=== PATIENT | male | born 1970 | race Caucasian/White ===

== ENCOUNTER 2018-12-29 23:18 | Inpatient (IN) | payer BC ==
[~2018-12-29] VITALS: Ht 175.3 cm; Wt 88.2 kg
[2018-12-30] VITALS (9 sets, daily range): BP systolic 136–156; BP diastolic 87–94; PULSE 71–90; RESP 18–22; Ht 175.3 cm; Wt 88.2 kg
[2018-12-30] MEDS ORDERED: CARV6.25 PO (05:46)
[2018-12-30] MEDS ORDERED: THIA50TA7 PO (05:46)
[2018-12-30] MEDS ORDERED: FOLI-49 PO (05:46)
[2018-12-30] MEDS ORDERED: ATOR-2 PO (05:46)
[2018-12-30] MEDS ORDERED: ARIP15TA3 PO (05:46)
[2018-12-30] MEDS ORDERED: LISI10TA2 PO (05:46)
[2018-12-30] MEDS ORDERED: ASPI-817 PO (05:46)
[2018-12-30] MEDS ORDERED: FERR325T5 PO (05:46)
[2018-12-30] MEDS ORDERED: SERT-165 PO (05:46)
[2018-12-30] MEDS ORDERED: ACETAMINOPHEN 325 MG TAB PO PRN (06:00)
[2018-12-30] MEDS ORDERED: ONDANSETRON 4 MG INJ IV PRN (06:00)
[2018-12-30] MEDS ORDERED: NACL 0.9% 3 ML SYG IV SCH (06:00)
[2018-12-30] MEDS ORDERED: ALBUTEROL/IPRATROPIUM (NEB) 3 ML AMP HHN PRN (06:00)
[2018-12-30] MEDS ORDERED: VANCOMYCIN IV PER PHARMACY XX SCH (06:00)
[2018-12-30] MEDS ORDERED: LORAZEPAM 2 MG INJ IV ONE (06:00)
--- NOTE | 2018-12-30 06:26 | HP ---
Date/Time of Note Date/Time of Note DATE: 12/30/18 TIME: 06:22 Assessment/Plan VTE Prophylaxis Pharmacological prophylaxis: heparin Lines/Catheters IV Catheter Type (from [facility]): Saline Lock Urinary Cath still in place: No Assessment/Plan Assessment/Plan 1. Bacteremia -Blood culture at [facility] shows GPC -He will be on IV antibiotics -will rule out endocarditis -ID and cardiology consult -Repeat blood culture here 2. Alcohol intoxication -Thiamine, folate, MVI, Librium. As needed Ativan 3. History of CAD with CABG in 2016 4. Substance abuse: Patient uses cocaine on a weekly or biweekly basis 5. Hypertension: Adjust BP meds as needed HPI/ROS Admit Date/Time Admit Date/Time Dec 30, 2018 at 04:32 Hx of Present Illness This is a 48-year-old male with a history of hypertension, depression,, cocaine use, CAD with CABG 2016, possible bowel surgery about a month ago. Patient was transferred from [facility] before her insurance reason after he was found to be bacteremic and intoxicated with alcohol. He also has been complaining of chest pain. He was seen at [facility] recently, at that time blood drawn now shows gram- positive cocci. Patient also has been drinking alcohol on a daily basis and is intoxicated with agitation and some sign of withdrawal. Patient was transferred to [facility] for insurance reason. PMH/Family/Social Past Medical History Medications Current Medications IV Flush (NS 3 ml) 3 ml PER PROTOCOL IV ; Start 12/30/18 at 06:00 Lorazepam (Ativan) 1 mg Q2H PRN IV .ANXIETY; Start 12/30/18 at 06:00 Ondansetron HCl (Zofran Inj) 4 mg Q6H PRN IV NAUSEA/VOMITING; Start 12/30/18 at 06:00 Acetaminophen (Tylenol Tab) 650 mg Q6H PRN PO .PAIN 1-3 OR TEMP; Start 12/30/18 at 06:00 Heparin Sodium (Porcine) (Heparin (5000 Units/1ml)) 5,000 unit Q12 SC ; Start 12/30/18 at 09:00 Albuterol/ Ipratropium (Duoneb) 3 ml Q2H RESP THERAPY PRN HHN SHORTNESS OF BREATH; Start 12/30/18 at 06:00 Aripiprazole (Abilify) 15 mg DAILY PO ; Start 12/30/18 at 09:00; Status UNV Atorvastatin Calcium (Lipitor) 80 mg QHS PO ; Start 12/30/18 at 21:00 Carvedilol (Coreg) 6.25 mg BID PO ; Start 12/30/18 at 09:00 Folic Acid (Folic Acid) 1 mg DAILY PO ; Start 12/30/18 at 09:00 Lisinopril (Zestril) 10 mg DAILY PO ; Start 12/30/18 at 09:00 Sertraline HCl (Zoloft) 150 mg DAILY PO ; Start 12/30/18 at 09:00; Status UNV Thiamine HCl (Vitamin B1) 100 mg DAILY PO ; Start 12/30/18 at 09:00 Miscellaneous Information 325 mg TID PO ; Start 12/30/18 at 09:00; Status UNV Multivitamins Therapeutic (Theragran) 1 tab DAILY PO ; Start 12/30/18 at 09:00 Lorazepam (Ativan) 2 mg Q2H PRN IV EtOH withdrawal; Start 12/30/18 at 06:00 Vancomycin HCl (Vanco Iv Per Pharmacy) VANCOMYCIN PER PHARMACY PER PROTOCOL XX ; Start 12/30/18 at 06:00; Status UNV Cefepime HCl 50 ml @ 100 mls/hr Q12 IVPB ; Start 12/30/18 at 09:00; Status UNV Coded Allergies: No Known Allergy (Unverified , 12/30/18) Social History Smoking Status: Former smoker Exam/Review of Systems Vital Signs Vitals Vital Signs Date Temp Pulse Resp B/P (MAP) Pulse Ox O2 O2 Flow FiO2 Time Delivery Rate 12/30/18 79 04:58 12/30/18 97.5 18 156/93 97 Room Air 04:30 (114) Intake and Output 12/29/18 12/29/18 12/30/18 1515:00 23:00 07:00 IntakeIntake Total 0 ml BalanceBalance 0 ml Exam Exam Past Surgical History Past Surgical Hx: other (see hpi) Family History Significant Family History: no pertinent family hx Social History Alcohol Use: other Smoking Status: Unknown if ever smoked Drug Use: none, other Exam Constitutional: other (no acute distress) Head: normocephalic, atraumatic Eyes: PERRL Respiratory: clear to auscultation Cardiovascular: regular rate and rhythm Gastrointestinal: soft GISELLE RIVERA MD Dec 30, 2018 06:26
[2018-12-30] MEDS: FOLIC ACID 1 MG TAB PO SCH (08:41)
[2018-12-30] MEDS: ARIPIPRAZOLE 5 MG TAB PO SCH (08:41)
[2018-12-30] MEDS: FERROUS GLUCONATE (EC) 325 MG TAB PO SCH ×3 (08:41→20:31)
[2018-12-30] MEDS: CEFEPIME 1GM/50 ML (PMX) 50 ML IVPB SCH ×2 (08:41→20:30)
[2018-12-30] MEDS: LISINOPRIL 10 MG TAB PO SCH (08:42)
[2018-12-30] MEDS: THIAMINE 100 MG TAB PO SCH (08:43)
[2018-12-30] MEDS: MULTIVITAMINS THERAPEUTIC TAB PO SCH (08:43)
[2018-12-30] MEDS: SERTRALINE 50 MG TAB PO SCH (08:43)
[2018-12-30] MEDS: CHLORDIAZEPOXIDE 25 MG CAP PO SCH ×3 (08:46→20:31)
[2018-12-30] MEDS: HEPARIN 5,000 UNIT/1 ML VIAL SC SCH ×2 (09:11→21:36)
--- NOTE | 2018-12-30 10:57 | PN ---
Date/Time of Note Date/Time of Note DATE: 12/30/18 TIME: 10:56 Assessment/Plan VTE Prophylaxis Risk score (from Ns)>0 risk: 2 SCD applied (from [facility] [place]): No SCD contraindicated: other Pharmacological prophylaxis: heparin Lines/Catheters IV Catheter Type (from [facility]): Peripheral IV Urinary Cath still in place: No Assessment/Plan Hospital Course S: No acute events overnight. O: VS - see below PE: General: lying in bed, no acute distress HEENT: NC/AT. pupils are equal. round. NECK: Supple CV: RRR. systolic murmur; no gallop or rubs. PULM: no wheezing or rhonchi. GI: SOFT, NT, ND, no rebound or guarding Extremity: trace B/L LE edema. no clubbing. neuro: No focal deficits Assessment/Plan: 48-year-old male with a history of hypertension, depression, cocaine use, CAD with CABG 2016, possible bowel surgery about a month ago, transferred from [facility] with bacteremia and intoxicated with alcohol. 1. Bacteremia -Blood culture at [facility] shows GPC. Presently no fevers. -For now continue IV antibiotics -will rule out endocarditis -echocardiogram ordered and will obtain cardiology consult -ID will also be consulted -Follow-up results of repeat blood culture here 2. Alcohol intoxication -Monitor for signs of withdrawal, for now continue thiamine, folate, MVI, Librium. - As needed Ativan -Counseled on alcohol cessation 3. History of CAD with CABG in 2016 -Continue current medications, follow cardiac 4. Substance abuse: Patient uses cocaine on a weekly or biweekly basis -Monitor withdrawal, counseled on cessation 5. Hypertension: Blood pressure presently stable -Monitor, adjust BP meds as needed Result Diagram: 12/30/18 0624 12/30/18 0624 Results 24hrs Laboratory Tests Test 12/30/18 06:24 White Blood Count 3.7 L Red Blood Count 4.19 L Hemoglobin 12.7 L Hematocrit 37.9 L Mean Corpuscular Volume 90.5 Mean Corpuscular Hemoglobin 30.3 Mean Corpuscular Hemoglobin Concent 33.5 Red Cell Distribution Width 16.9 H Platelet Count 221 Mean Platelet Volume 10.9 H Immature Granulocytes % 0.300 Neutrophils % 61.4 Lymphocytes % 27.8 Monocytes % 7.8 Eosinophils % 1.6 Basophils % 1.1 Nucleated Red Blood Cells % 0.0 Immature Granulocytes # 0.010 Neutrophils # 2.3 Lymphocytes # 1.0 Monocytes # 0.3 Eosinophils # 0.1 Basophils # 0.0 Nucleated Red Blood Cells # 0.0 Sodium Level 142 Potassium Level 3.9 Chloride Level 108 Carbon Dioxide Level 26 Anion Gap 8 Blood Urea Nitrogen 19 Creatinine 0.60 L Est Glomerular Filtrat Rate mL/min > 60 Glucose Level 101 Hemoglobin A1c 5.7 Calcium Level 9.0 Total Bilirubin 0.9 Direct Bilirubin 0.00 Indirect Bilirubin 0.9 Aspartate Amino Transf (AST/SGOT) 55 H Alanine Aminotransferase (ALT/SGPT) 60 Alkaline Phosphatase 70 Creatine Kinase 254 H Creatine Kinase Index 1.4 Creatinine Kinase MB (Mass) 3.64 H Troponin I < 0.012 Total Protein 7.1 Albumin 3.9 Globulin 3.20 Albumin/Globulin Ratio 1.21 Triglycerides Level 87 Cholesterol Level 179 LDL Cholesterol, Calculated 115 HDL Cholesterol 47 Cholesterol/HDL Ratio 3.8 Thyroid Stimulating Hormone (TSH) 7.750 H Exam/Review of Systems Exam Vitals Vital Signs Date Temp Pulse Resp B/P (MAP) Pulse Ox O2 O2 Flow FiO2 Time Delivery Rate 12/30/18 90 08:36 12/30/18 98.4 22 148/90 96 Room Air 07:45 (109) Intake and Output 12/29/18 12/29/18 12/30/18 1515:00 23:00 07:00 IntakeIntake Total 0 ml BalanceBalance 0 ml Results Results 24hrs Laboratory Tests Test 12/30/18 06:24 White Blood Count 3.7 L Red Blood Count 4.19 L Hemoglobin 12.7 L Hematocrit 37.9 L Mean Corpuscular Volume 90.5 Mean Corpuscular Hemoglobin 30.3 Mean Corpuscular Hemoglobin Concent 33.5 Red Cell Distribution Width 16.9 H Platelet Count 221 Mean Platelet Volume 10.9 H Immature Granulocytes % 0.300 Neutrophils % 61.4 Lymphocytes % 27.8 Monocytes % 7.8 Eosinophils % 1.6 Basophils % 1.1 Nucleated Red Blood Cells % 0.0 Immature Granulocytes # 0.010 Neutrophils # 2.3 Lymphocytes # 1.0 Monocytes # 0.3 Eosinophils # 0.1 Basophils # 0.0 Nucleated Red Blood Cells # 0.0 Sodium Level 142 Potassium Level 3.9 Chloride Level 108 Carbon Dioxide Level 26 Anion Gap 8 Blood Urea Nitrogen 19 Creatinine 0.60 L Est Glomerular Filtrat Rate mL/min > 60 Glucose Level 101 Hemoglobin A1c 5.7 Calcium Level 9.0 Total Bilirubin 0.9 Direct Bilirubin 0.00 Indirect Bilirubin 0.9 Aspartate Amino Transf (AST/SGOT) 55 H Alanine Aminotransferase (ALT/SGPT) 60 Alkaline Phosphatase 70 Creatine Kinase 254 H Creatine Kinase Index 1.4 Creatinine Kinase MB (Mass) 3.64 H Troponin I < 0.012 Total Protein 7.1 Albumin 3.9 Globulin 3.20 Albumin/Globulin Ratio 1.21 Triglycerides Level 87 Cholesterol Level 179 LDL Cholesterol, Calculated 115 HDL Cholesterol 47 Cholesterol/HDL Ratio 3.8 Thyroid Stimulating Hormone (TSH) 7.750 H Medications Medication Current Medications IV Flush (NS 3 ml) 3 ml PER PROTOCOL IV ; Start 12/30/18 at 06:00 Lorazepam (Ativan) 1 mg Q2H PRN IV .ANXIETY; Start 12/30/18 at 06:00 Ondansetron HCl (Zofran Inj) 4 mg Q6H PRN IV NAUSEA/VOMITING; Start 12/30/18 at 06:00 Acetaminophen (Tylenol Tab) 650 mg Q6H PRN PO .PAIN 1-3 OR TEMP; Start 12/30/18 at 06:00 Heparin Sodium (Porcine) (Heparin (5000 Units/1ml)) 5,000 unit Q12 SC Last administered on 12/30/18at 09:11; Admin Dose 5,000 UNIT; Start 12/30/18 at 09:00 Albuterol/ Ipratropium (Duoneb) 3 ml Q2H RESP THERAPY PRN HHN SHORTNESS OF BREATH; Start 12/30/18 at 06:00 Aripiprazole (Abilify) 15 mg DAILY PO Last administered on 12/30/18at 08:41; Admin Dose 15 MG; Start 12/30/18 at 09:00 Atorvastatin Calcium (Lipitor) 80 mg QHS PO ; Start 12/30/18 at 21:00 Carvedilol (Coreg) 6.25 mg BID PO Last administered on 12/30/18at 08:42; Admin Dose 6.25 MG; Start 12/30/18 at 09:00 Folic Acid (Folic Acid) 1 mg DAILY PO Last administered on 12/30/18at 08:41; Admin Dose 1 MG; Start 12/30/18 at 09:00 Lisinopril (Zestril) 10 mg DAILY PO Last administered on 12/30/18 08:42; Admin Dose 10 MG; Start 12/30/18 at 09:00 Sertraline HCl (Zoloft) 150 mg DAILY PO Last administered on 12/30/18 08:43; Admin Dose 150 MG; Start 12/30/18 at 09:00 Thiamine HCl (Vitamin B1) 100 mg DAILY PO Last administered on 12/30/18 08:43; Admin Dose 100 MG; Start 12/30/18 at 09:00 Ferrous Gluconate (Fergon) 325 mg TID PO Last administered on 12/30/18 08:41; Admin Dose 325 MG; Start 12/30/18 at 09:00 Multivitamins Therapeutic (Theragran) 1 tab DAILY PO Last administered on 12/30/18 08:43; Admin Dose 1 TAB; Start 12/30/18 at 09:00 Lorazepam (Ativan) 2 mg Q2H PRN IV EtOH withdrawal; Start 12/30/18 at 06:00 Vancomycin HCl (Vanco Iv Per Pharmacy) VANCOMYCIN PER PHARMACY PER PROTOCOL XX ; Start 12/30/18 at 06:00 Cefepime HCl 50 ml @ 100 mls/hr Q12 IVPB Last administered on 12/30/18 08:41; Admin Dose 100 MLS/HR; Start 12/30/18 at 07:00 Chlordiazepoxide (Librium) 50 mg TID PO Last administered on 12/30/18 08:46; Admin Dose 50 MG; Start 12/30/18 at 09:00 HENNY SOTELO Dec 30, 2018 10:57
--- NOTE | 2018-12-30 14:14 | RADRPT ---
Echocardiogram Report Patient Name: SHARAN REYESPatient ID: [id number] : 1970 (48y 2m)Study Date: 12/30/2018 9:16:20 AM Gender: Coriecession #: [id number] Tech: [facility] Location: [address] Ref.Physician: HENNY SOTELO Height(Cm): BSA: Weight(Kg): Quality: Technically Difficult StudyAccount #: Procedures: Echocardiographic Report: Transthoracic echocardiogram with complete 2D, M-Mode, and doppler examination. Indications: R/o endocarditis, hx of AVR. Measurements: 2D/M Mode Doppler Measurement Value Normal Range Measurement Value Normal Range LVIDd 2D 5.0 [ 4.2 - 5.8 ] cm AV Mean Terence 1.1 [ 70.0 - 90.0 ] cm/sec LVIDs 2D 3.7 [ 2.5 - 4.0 ] cm AV Mean PG 7.0 [ 2.0 - 4.0 ] mmHg LVPWd 2D 1.4 [ 0.6 - 1.0 ] cm AV VTI 34.0 cm IVSd 2D 1.4 [ 0.6 - 1.0 ] cm LVOT Peak Terence 0.7 [ 70.0 - 110.0 ] cm/sec AoR Diam 2D 3.0 [ 2.6 - 3.4 ] cm LVOT Peak PG 2.0 [ 2.0 - 6.0 ] mmHg EDV 2D 117.0 [ 62.0 - 150.0 ] ml MV E Peak Terence 0.7 [ 60.0 - 130.0 ] cm/sec ESV 2D 59.6 [ 21.0 - 61.0 ] ml MV A Peak Terence 0.8 [ 100.0 - 120.0 ] cm/sec EF 2D 49.1 [ 52.0 - 72.0 ] percent MV E/A 0.9 [ 0.8 - 1.5 ] ratio LA Dimen 2D 3.8 [ 3.0 - 4.0 ] cm MV Decel Time 137 [ 104 - 258 ] msec Lat E` Terence 0.1 [ 10.0 - 15.0 ] cm/sec Lateral E/E` 9.0 [ 1.0 - 2.0 ] ratio Med E` Terence 0.1 cm/sec MV E/A 0.9 [ 0.8 - 1.5 ] ratio TR Peak Terence 2.7 [ 100.0 - 280.0 ] cm/sec TR Peak PG 30.0 mmHg RVSP 38.0 [ 10.0 - 36.0 ] mmHg Findings: Left Ventricle: Normal left ventricular cavity size. Moderate concentric left ventricular hypertrophy. Mild left ventricular systolic dysfunction. Paradoxical septal motion consistent with post pericardectomy status. Ejection fraction is visually estimated at 55 %. Tissue Doppler/Mitral Doppler indices are consistent with impaired relaxation (Stage I diastolic dysfunction). Right Ventricle: Normal right ventricular size. Normal right ventricular systolic function. Left Atrium: The left atrium is normal in size. Right Atrium: The right atrium is normal in size. Mitral Valve: Mild mitral leaflet calcification. Mild mitral annular calcification. Trace mitral regurgitation. Aortic Valve: Aortic Valve Bio Prosthesis. Aortic valve Max velocity 1.99 m/sec. Max PG 16.00 mmHg. Mean PG 7.00 mmHg. Tricuspid Valve: Normal appearance of the tricuspid valve. Estimated peak PA systolic pressure 38 mmHg. There is mild tricuspid regurgitation. Pulmonic Valve: Pulmonic valve not well visualized. Pericardium: Normal pericardium with no significant pericardial effusion. Aorta: Normal aortic root. IVC: Normal size with poor respiratory collapse consistent with elevated right atrial pressure. Conclusions: Fair quality study. Moderate concentric left ventricular hypertrophy with normal systolic function, septal dyskinesis. Grade 1 diastolic dysfunction. Trace mitral regurgitation. Mild tricuspid regurgitation with mild pulmonary hypertension. Bioprosthetic aortic valve without elevated gradients. Structure is not well seen. IVC not collapsing suggests elevated right atrial pressure. If concern persists for endocarditis consider ROBERTO. Electronically Signed By: Jo Martinez 2018-12-30 14:12:55 [facility]
[2018-12-30] MEDS: VANCOMYCIN HCL 1.25 GM in SOD CHLORIDE 0.9% 250 ML IVPB SCH (14:28)
[2018-12-30] MEDS: LORAZEPAM 2 MG INJ IV PRN (14:32)
--- NOTE | 2018-12-30 18:40 | CONS ---
Assessment/Plan Assessment/Plan Hospital Course (Demo Recall) 48 yo with h/o bioprosthetic aortic valve, with known bacteremia, left hospital ama, picked up intoxicated and brought to [facility], transferred here for insurance reasons. Gram positive cocci in clusters suspicious as a cause of endocarditis. Transthoracic echo does not clearly show a vegetation, but was not a good quality study due to patient body habitus. Impression: Bacteremia, r/o endocarditis H/o aortic valve and root replacement Alcohol abuse, now in withdrawal Cocaine abuse Recommendations: Will try to get outside records from [facility] and from [facility]. Given brevity of patient's admissions, unlikely that a ROBERTO was done. Will plan to do a ROBERTO on morning. Discussed the procedure with the patient, rationale for doing it for diagnosing possible valve infection, and possible consequences of untreated endocarditis. He agrees to proceed. Antibiotics, ID consult, would be helpful to have outside hospital culture results Watch for DT's Social work for aid in maintaining sobriety Anticipate patient will need long-term antibiotics and may need to be in a SNF/[facility] facility for continued treatment Consultation Date/Type/Reason Admit Date/Time Dec 30, 2018 at 04:32 Date of Consultation: Dec 30, 2018 Type of Consult Cardiology Reason for Consultation possible endocarditis Requesting Provider: HENNY SOTELO Date/Time of Note DATE: 12/30/18 TIME: 18:16 Hx of Present Illness 48 yo with history of surgical bioprosthetic aortic valve replacement and Bentall procedure for bicuspid aortic valve with regurgitation and ascending thoracic aneurysm, also with h/o etoh and cocaine use, presented to [facility] by ambulance, found intoxicated. He had been recently admitted for bacteremia and left against medical advice. Cultures grew out gram positive cocci. He states he was at the [facility] to get sober, but then left to drink, a decision which he acknowledges was a poor choice. Patient speech somewhat difficult to discern, but he does state he's been in both [facility] and [facility] in the past week, does not recall what testing he has had done, is not sure if he has had a ROBERTO. He does state a desire to get sober. Last used cocaine 2 weeks ago, last drank vodka yesterday. At present he says he feels unwell, knows he's "going through withdrawals", c/o abdominal pain. No dyspnea, no chest pain. Constitutional: other (general malaise) Eyes: no complaints ENT: no complaints Respiratory: no complaints Cardiovascular: no complaints Gastrointestinal: pain Genitourinary: no complaints Musculoskeletal: no complaints Skin: no complaints Neurologic: no complaints Endocrine: no complaints Lymphatic: no complaints Psychological: no complaints Immunologic: no complaints Past Medical History Home Meds Reported Medications Thiamine* (Thiamine*) 50 Mg Tablet, 100 MG PO DAILY, TAB 12/30/18 Folic Acid* (Folic Acid*) 1 Mg Tablet, 1 MG PO DAILY, TAB 12/30/18 Aripiprazole* (Abilify*) 15 Mg Tablet, 15 MG PO DAILY, #30 TAB 12/30/18 Aspirin* (Aspirin* EC) 81 Mg Tablet.dr, 81 MG PO DAILY, TAB 12/30/18 Atorvastatin* (Atorvastatin*) 80 Mg Tablet, 80 MG PO QHS, #30 TAB 12/30/18 Lisinopril* (Lisinopril*) 10 Mg Tablet, 10 MG PO DAILY, #30 TAB 12/30/18 Ferrous Sulfate (Ferrous Sulfate) 325 Mg Tablet.dr, 325 MG PO TID 12/30/18 Sertraline Hcl* (Sertraline Hcl*) 100 Mg Tablet, 150 MG PO DAILY, #30 TAB 12/30/18 Carvedilol* (Coreg*) 6.25 Mg Tablet, 6.25 MG PO BID, #60 TAB 12/30/18 Medications Current Medications IV Flush (NS 3 ml) 3 ml PER PROTOCOL IV ; Start 12/30/18 at 06:00 Lorazepam (Ativan) 1 mg Q2H PRN IV .ANXIETY Last administered on 12/30/18at 14:32; Admin Dose 1 MG; Start 12/30/18 at 06:00 Ondansetron HCl (Zofran Inj) 4 mg Q6H PRN IV NAUSEA/VOMITING; Start 12/30/18 at 06:00 Acetaminophen (Tylenol Tab) 650 mg Q6H PRN PO .PAIN 1-3 OR TEMP; Start 12/30/18 at 06:00 Heparin Sodium (Porcine) (Heparin (5000 Units/1ml)) 5,000 unit Q12 SC Last administered on 12/30/18at 09:11; Admin Dose 5,000 UNIT; Start 12/30/18 at 09:00 Albuterol/ Ipratropium (Duoneb) 3 ml Q2H RESP THERAPY PRN HHN SHORTNESS OF BREATH; Start 12/30/18 at 06:00 Aripiprazole (Abilify) 15 mg DAILY PO Last administered on 12/30/18 08:41; A dmin Dose 15 MG; Start 12/30/18 at 09:00 Atorvastatin Calcium (Lipitor) 80 mg QHS PO ; Start 12/30/18 at 21:00 Carvedilol (Coreg) 6.25 mg BID PO Last administered on 12/30/18 08:42; Admin Dose 6.25 MG; Start 12/30/18 at 09:00 Folic Acid (Folic Acid) 1 mg DAILY PO Last administered on 12/30/18 08:41; Admin Dose 1 MG; Start 12/30/18 at 09:00 Lisinopril (Zestril) 10 mg DAILY PO Last administered on 12/30/18 08:42; Admin Dose 10 MG; Start 12/30/18 at 09:00 Sertraline HCl (Zoloft) 150 mg DAILY PO Last administered on 12/30/18 08:43; Admin Dose 150 MG; Start 12/30/18 at 09:00 Thiamine HCl (Vitamin B1) 100 mg DAILY PO Last administered on 12/30/18 08:43; Admin Dose 100 MG; Start 12/30/18 at 09:00 Ferrous Gluconate (Fergon) 325 mg TID PO Last administered on 12/30/18 13:26; Admin Dose 325 MG; Start 12/30/18 at 09:00 Multivitamins Therapeutic (Theragran) 1 tab DAILY PO Last administered on 12/30/18 08:43; Admin Dose 1 TAB; Start 12/30/18 at 09:00 Lorazepam (Ativan) 2 mg Q2H PRN IV EtOH withdrawal; Start 12/30/18 at 06:00 Vancomycin HCl (Vanco Iv Per Pharmacy) VANCOMYCIN PER PHARMACY PER PROTOCOL XX ; Start 12/30/18 at 06:00 Cefepime HCl 50 ml @ 100 mls/hr Q12 IVPB Last administered on 12/30/18 08:41; Admin Dose 100 MLS/HR; Start 12/30/18 at 07:00 Chlordiazepoxide (Librium) 50 mg TID PO Last administered on 12/30/18at 13:26; Admin Dose 50 MG; Start 12/30/18 at 09:00 Vancomycin HCl 1.25 gm/Sodium Chloride 250 ml @ 83.333 mls/ hr Q12H IVPB Last administered on 12/30/18at 14:28; Admin Dose 83.333 MLS/HR; Start 12/30/18 at 14:00 Allergies: Coded Allergies: No Known Allergy (Unverified , 12/30/18) Past Surgical History Past Surgical Hx: other (bioprosthetic aortic valve replacement for bicuspid aortic valve with regurgitation, with Bentall for aortic root aneurysm) Family History Significant Family History: no pertinent family hx Social History Alcohol Use: heavy (last drank yesterday, drank heavily) Smoking Status: Former smoker Drug Use: cocaine (last used 2 weeks ago) Exam/Review of Systems Vital Signs Vitals Vital Signs Date Temp Pulse Resp B/P (MAP) Pulse Ox O2 O2 Flow FiO2 Time Delivery Rate 12/30/18 74 16:41 12/30/18 98.0 21 136/87 96 Room Air 16:06 (103) 12/30/18 3.0 13:32 Intake and Output 12/29/18 12/29/18 12/30/18 1515:00 23:00 07:00 IntakeIntake Total 0 ml BalanceBalance 0 ml Exam Constitutional: alert, oriented, well developed Psych: nl mood/affect Head: normocephalic, atraumatic Eyes: nl conjunctiva, nl sclera ENMT: nl external ears & nose, nl lips & teeth Neck: supple; No jvd, No bruits Respiratory: clear to auscultation, normal air movement Cardiovascular: regular rate and rhythm, nl pulses, murmurs/extra sounds (3/6 systolic murmur at the left upper sternal border) Gastrointestinal: soft, nl liver, spleen, non-tender Musculoskeletal: nl extremities to inspection Extremities: normal pulses Neurological: nl mental status; No nl speech (speech difficult to understand) Skin: No rash or lesions Labs Result Diagram: 12/30/1862312/30/18 0624 Results 24hrs Laboratory Tests Test 12/30/18 06:24 12/30/18 11:10 White Blood Count 3.7 L Red Blood Count 4.19 L Hemoglobin 12.7 L Hematocrit 37.9 L Mean Corpuscular Volume 90.5 Mean Corpuscular Hemoglobin 30.3 Mean Corpuscular Hemoglobin Concent 33.5 Red Cell Distribution Width 16.9 H Platelet Count 221 Mean Platelet Volume 10.9 H Immature Granulocytes % 0.300 Neutrophils % 61.4 Lymphocytes % 27.8 Monocytes % 7.8 Eosinophils % 1.6 Basophils % 1.1 Nucleated Red Blood Cells % 0.0 Immature Granulocytes # 0.010 Neutrophils # 2.3 Lymphocytes # 1.0 Monocytes # 0.3 Eosinophils # 0.1 Basophils # 0.0 Nucleated Red Blood Cells # 0.0 Sodium Level 142 Potassium Level 3.9 Chloride Level 108 Carbon Dioxide Level 26 Anion Gap 8 Blood Urea Nitrogen 19 Creatinine 0.60 L Est Glomerular Filtrat Rate mL/min > 60 Glucose Level 101 Hemoglobin A1c 5.7 Calcium Level 9.0 Total Bilirubin 0.9 Direct Bilirubin 0.00 Indirect Bilirubin 0.9 Aspartate Amino Transf (AST/SGOT) 55 H Alanine Aminotransferase (ALT/SGPT) 60 Alkaline Phosphatase 70 Creatine Kinase 254 H 207 H Creatine Kinase Index 1.4 1.4 Creatinine Kinase MB (Mass) 3.64 H 2.93 H Troponin I < 0.012 < 0.012 Total Protein 7.1 Albumin 3.9 Globulin 3.20 Albumin/Globulin Ratio 1.21 Triglycerides Level 87 Cholesterol Level 179 LDL Cholesterol, Calculated 115 HDL Cholesterol 47 Cholesterol/HDL Ratio 3.8 Thyroid Stimulating Hormone (TSH) 7.750 H Ethyl Alcohol Level < 10.0 H Medications Medications Current Medications IV Flush (NS 3 ml) 3 ml PER PROTOCOL IV ; Start 12/30/18 at 06:00 Lorazepam (Ativan) 1 mg Q2H PRN IV .ANXIETY Last administered on 12/30/18at 14:32; Admin Dose 1 MG; Start 12/30/18 at 06:00 Ondansetron HCl (Zofran Inj) 4 mg Q6H PRN IV NAUSEA/VOMITING; Start 12/30/18 at 06:00 Acetaminophen (Tylenol Tab) 650 mg Q6H PRN PO .PAIN 1-3 OR TEMP; Start 12/30/18 at 06:00 Heparin Sodium (Porcine) (Heparin (5000 Units/1ml)) 5,000 unit Q12 SC Last administered on 12/30/18at 09:11; Admin Dose 5,000 UNIT; Start 12/30/18 at 09:00 Albuterol/ Ipratropium (Duoneb) 3 ml Q2H RESP THERAPY PRN HHN SHORTNESS OF BREATH; Start 12/30/18 at 06:00 Aripiprazole (Abilify) 15 mg DAILY PO Last administered on 12/30/18 08:41; Admin Dose 15 MG; Start 12/30/18 at 09:00 Atorvastatin Calcium (Lipitor) 80 mg QHS PO ; Start 12/30/18 at 21:00 Carvedilol (Coreg) 6.25 mg BID PO Last administered on 12/30/18 08:42; Admin Dose 6.25 MG; Start 12/30/18 at 09:00 Folic Acid (Folic Acid) 1 mg DAILY PO Last administered on 12/30/18 08:41; Admin Dose 1 MG; Start 12/30/18 at 09:00 Lisinopril (Zestril) 10 mg DAILY PO Last administered on 12/30/18 08:42; Admin Dose 10 MG; Start 12/30/18 at 09:00 Sertraline HCl (Zoloft) 150 mg DAILY PO Last administered on 12/30/18 08:43; Admin Dose 150 MG; Start 12/30/18 at 09:00 Thiamine HCl (Vitamin B1) 100 mg DAILY PO Last administered on 12/30/18 08:43; Admin Dose 100 MG; Start 12/30/18 at 09:00 Ferrous Gluconate (Fergon) 325 mg TID PO Last administered on 12/30/18 13:26; Admin Dose 325 MG; Start 12/30/18 at 09:00 Multivitamins Therapeutic (Theragran) 1 tab DAILY PO Last administered on 12/30/18 08:43; Admin Dose 1 TAB; Start 12/30/18 at 09:00 Lorazepam (Ativan) 2 mg Q2H PRN IV EtOH withdrawal; Start 12/30/18 at 06:00 Vancomycin HCl (Vanco Iv Per Pharmacy) VANCOMYCIN PER PHARMACY PER PROTOCOL XX ; Start 12/30/18 at 06:00 Cefepime HCl 50 ml @ 100 mls/hr Q12 IVPB Last administered on 12/30/18 08:41; Admin Dose 100 MLS/HR; Start 12/30/18 at 07:00 Chlordiazepoxide (Librium) 50 mg TID PO Last administered on 12/30/18at 13:26; Admin Dose 50 MG; Start 12/30/18 at 09:00 Vancomycin HCl 1.25 gm/Sodium Chloride 250 ml @ 83.333 mls/ hr Q12H IVPB Last administered on 12/30/18at 14:28; Admin Dose 83.333 MLS/HR; Start 12/30/18 at 14:00 TESSIE AGUSTIN Dec 30, 2018 18:26
[2018-12-30] MEDS: ATORVASTATIN 80 MG TAB PO SCH (20:31)
[2018-12-31] VITALS (10 sets, daily range): BP systolic 134–160; BP diastolic 74–99; PULSE 60–90; RESP 19–21
[2018-12-31] MEDS: VANCOMYCIN HCL 1.25 GM in SOD CHLORIDE 0.9% 250 ML IVPB SCH ×2 (01:59→14:08)
[2018-12-31] MEDS: LORAZEPAM 2 MG INJ IV PRN ×2 (03:14→22:23)
[2018-12-31] MEDS: THIAMINE 100 MG TAB PO SCH (08:39)
[2018-12-31] MEDS: CEFEPIME 1GM/50 ML (PMX) 50 ML IVPB SCH ×2 (08:39→20:32)
[2018-12-31] MEDS: SERTRALINE 50 MG TAB PO SCH (08:39)
[2018-12-31] MEDS: ARIPIPRAZOLE 5 MG TAB PO SCH (08:39)
[2018-12-31] MEDS: MULTIVITAMINS THERAPEUTIC TAB PO SCH (08:40)
[2018-12-31] MEDS: FERROUS GLUCONATE (EC) 325 MG TAB PO SCH ×3 (08:40→20:30)
[2018-12-31] MEDS: CHLORDIAZEPOXIDE 25 MG CAP PO SCH ×3 (08:40→20:29)
[2018-12-31] MEDS: FOLIC ACID 1 MG TAB PO SCH (08:40)
[2018-12-31] MEDS: LISINOPRIL 10 MG TAB PO SCH (08:40)
[2018-12-31] MEDS: HEPARIN 5,000 UNIT/1 ML VIAL SC SCH ×2 (08:55→20:41)
--- NOTE | 2018-12-31 09:33 | CONS ---
Assessment/Plan Assessment/Plan Hospital Course (Demo Recall) 48 yo with h/o bioprosthetic aortic valve, with known bacteremia, left hospital ama, picked up intoxicated and brought to [facility], transferred here for insurance reasons. Gram positive cocci in clusters suspicious as a cause of endocarditis. Transthoracic echo does not clearly show a vegetation. Needs a ROBERTO to rule out endocarditis. Impression: Bacteremia, r/o endocarditis H/o aortic valve and root replacement Alcohol abuse Cocaine abuse Recommendations: Discussed ROBERTO procedure with the patient, discussed risks and benefits, rationale for doing it for diagnosing possible valve infection, and possible consequences of untreated endocarditis. Procedure tentatively scheduled for 8:30 am tomorrow. Would like to get outside records from [facility] and from [facility]. . Antibiotics, ID consult, would be helpful to have outside hospital culture results Watch for DT's Social work for aid in maintaining sobriety Anticipate patient will need long-term antibiotics and may need to be in a SNF/[facility] facility for continued treatment Consultation Date/Type/Reason Admit Date/Time Dec 30, 2018 at 04:32 Initial Consult Date 12/30/18 Type of Consult Cardiology Requesting Provider: HENNY SOTELO Date/Time of Note DATE: 12/31/18 TIME: 09:28 24 HR Interval Summary Free Text/Dictation Patient sitting up, shaving, says he feels a lot better, no shaking, no pain, no dyspnea. Exam/Review of Systems Vital Signs Vitals Vital Signs Date Temp Pulse Resp B/P (MAP) Pulse Ox O2 O2 Flow FiO2 Time Delivery Rate 12/31/18 81 08:22 12/31/18 98.4 20 155/99 96 07:30 (117) 12/30/18 Room Air 16:06 12/30/18 3.0 13:32 Intake and Output 12/30/18 12/30/18 12/31/18 1515:00 23:00 07:00 IntakeIntake Total 1280 ml 550 ml OutputOutput Total 200 ml 300 ml BalanceBalance 1080 ml 250 ml Exam Constitutional: alert, oriented, well developed Psych: nl mood/affect Head: normocephalic, atraumatic Eyes: nl conjunctiva, EOMI, nl lids, nl sclera ENMT: nl external ears & nose Neck: supple; No bruits Respiratory: clear to auscultation, normal air movement Cardiovascular: regular rate and rhythm, murmurs/extra sounds (systolic murmur at the left upper sternal border) Gastrointestinal: soft, non-tender Musculoskeletal: nl extremities to inspection Extremities: normal pulses Neurological: nl mental status, nl speech Skin: No rash or lesions Labs Result Diagram: 12/31/18 0516 12/31/18 0516 Results 24hrs Laboratory Tests Test 12/30/18 11:10 12/31/18 05:16 Creatine Kinase 207 H Creatine Kinase Index 1.4 Creatinine Kinase MB (Mass) 2.93 H Troponin I < 0.012 Ethyl Alcohol Level < 10.0 H White Blood Count 3.1 L Red Blood Count 4.18 L Hemoglobin 12.7 L Hematocrit 38.3 L Mean Corpuscular Volume 91.6 Mean Corpuscular Hemoglobin 30.4 Mean Corpuscular Hemoglobin Concent 33.2 Red Cell Distribution Width 15.9 H Platelet Count 214 Mean Platelet Volume 10.8 H Immature Granulocytes % 0.000 L Neutrophils % 45.5 Lymphocytes % 38.2 Monocytes % 10.8 Eosinophils % 4.5 Basophils % 1.0 Nucleated Red Blood Cells % 0.0 Immature Granulocytes # 0.000 Neutrophils # 1.4 L Lymphocytes # 1.2 Monocytes # 0.3 Eosinophils # 0.1 Basophils # 0.0 Nucleated Red Blood Cells # 0.0 Sodium Level 140 Potassium Level 3.5 Chloride Level 104 Carbon Dioxide Level 26 Anion Gap 10 Blood Urea Nitrogen 18 Creatinine 0.65 Est Glomerular Filtrat Rate mL/min > 60 Glucose Level 139 Calcium Level 8.8 Phosphorus Level 2.5 Magnesium Level 1.6 L Medications Medications Current Medications IV Flush (NS 3 ml) 3 ml PER PROTOCOL IV ; Start 12/30/18 at 06:00 Lorazepam (Ativan) 1 mg Q2H PRN IV .ANXIETY Last administered on 12/30/18at 14:32; Admin Dose 1 MG; Start 12/30/18 at 06:00 Ondansetron HCl (Zofran Inj) 4 mg Q6H PRN IV NAUSEA/VOMITING; Start 12/30/18 at 06:00 Acetaminophen (Tylenol Tab) 650 mg Q6H PRN PO .PAIN 1-3 OR TEMP; Start 12/30/18 at 06:00 Heparin Sodium (Porcine) (Heparin (5000 Units/1ml)) 5,000 unit Q12 SC Last administered on 12/31/18 08:55; Admin Dose 5,000 UNIT; Start 12/30/18 at 09:00 Albuterol/ Ipratropium (Duoneb) 3 ml Q2H RESP THERAPY PRN HHN SHORTNESS OF BREATH; Start 12/30/18 at 06:00 Aripiprazole (Abilify) 15 mg DAILY PO Last administered on 12/31/18 08:39; Admin Dose 15 MG; Start 12/30/18 at 09:00 Atorvastatin Calcium (Lipitor) 80 mg QHS PO Last administered on 12/30/18 20:31; Admin Dose 80 MG; Start 12/30/18 at 21:00 Carvedilol (Coreg) 6.25 mg BID PO Last administered on 12/31/18 08:41; Admin Dose 6.25 MG; Start 12/30/18 at 09:00 Folic Acid (Folic Acid) 1 mg DAILY PO Last administered on 12/31/18 08:40; Admin Dose 1 MG; Start 12/30/18 at 09:00 Lisinopril (Zestril) 10 mg DAILY PO Last administered on 12/31/18 08:40; Admin Dose 10 MG; Start 12/30/18 at 09:00 Sertraline HCl (Zoloft) 150 mg DAILY PO Last administered on 12/31/18 08:39; Admin Dose 150 MG; Start 12/30/18 at 09:00 Thiamine HCl (Vitamin B1) 100 mg DAILY PO Last administered on 12/31/18 08:39; Admin Dose 100 MG; Start 12/30/18 at 09:00 Ferrous Gluconate (Fergon) 325 mg TID PO Last administered on 12/31/18 08:40; Admin Dose 325 MG; Start 12/30/18 at 09:00 Multivitamins Therapeutic (Theragran) 1 tab DAILY PO Last administered on 12/31/18 08:40; Admin Dose 1 TAB; Start 12/30/18 at 09:00 Lorazepam (Ativan) 2 mg Q2H PRN IV EtOH withdrawal Last administered on 12/31/18 03:14; Admin Dose 2 MG; Start 12/30/18 at 06:00 Vancomycin HCl (Vanco Iv Per Pharmacy) VANCOMYCIN PER PHARMACY PER PROTOCOL XX ; Start 12/30/18 at 06:00 Cefepime HCl 50 ml @ 100 mls/hr Q12 IVPB Last administered on 12/31/18at 08:39; Admin Dose 100 MLS/HR; Start 12/30/18 at 07:00 Chlordiazepoxide (Librium) 50 mg TID PO Last administered on 12/31/18at 08:40; Admin Dose 50 MG; Start 12/30/18 at 09:00 Vancomycin HCl 1.25 gm/Sodium Chloride 250 ml @ 83.333 mls/ hr Q12H IVPB Last administered on 12/31/18at 01:59; Admin Dose 83.333 MLS/HR; Start 12/30/18 at 14:00 TESSIE AGUSTIN Dec 31, 2018 09:33
--- NOTE | 2018-12-31 10:38 | PN ---
Date/Time of Note Date/Time of Note DATE: 12/31/18 TIME: 10:34 Assessment/Plan VTE Prophylaxis Risk score (from Ns)>0 risk: 2 SCD applied (from Ns): No SCD contraindicated: other Pharmacological prophylaxis: heparin Lines/Catheters IV Catheter Type (from Nrs): Saline Lock Urinary Cath still in place: No Assessment/Plan Hospital Course S: No acute events overnight. Seen by cardiology team this morning. Still waiting for outside records from [facility] and [facility]. O: VS - see below PE: General: lying in bed, no acute distress HEENT: NC/AT. pupils are equal. round. NECK: Supple CV: RRR. systolic murmur; no gallop or rubs. PULM: no wheezing or rhonchi. GI: SOFT, NT, ND, no rebound or guarding Extremity: trace B/L LE edema. no clubbing. neuro: No focal deficits Assessment/Plan: 48-year-old male with a history of hypertension, depression, cocaine use, CAD with CABG 2016, possible bowel surgery about a month ago, transferred from [facility] with bacteremia and intoxicated with alcohol. 1. Bacteremia -Blood culture at [facility] shows GPC. Presently no fevers. -For now continue IV antibiotics -follow-up outside hospital records that have been ordered and are still waiting to be obtained -Per cardiology recommendations, planning for ROBERTO in the next 24 hours, will also likely get infectious disease consult -Follow-up results of repeat blood culture results here 2. Alcohol intoxication -Monitor for signs of withdrawal, for now continue thiamine, folate, MVI, Librium. - As needed Ativan -Counseled on alcohol cessation 3. History of CAD with CABG in 2016 -Continue current medications, follow up cardiac recommendation 4. Substance abuse: Patient uses cocaine on a weekly or biweekly basis -Monitor withdrawal, counseled on cessation 5. Hypertension: Blood pressure presently stable -Monitor, adjust BP meds as needed Result Diagram: 12/31/1851512/31/1816 Results 24hrs Laboratory Tests Test 12/30/18 11:10 12/31/18 05:16 Creatine Kinase 207 H Creatine Kinase Index 1.4 Creatinine Kinase MB (Mass) 2.93 H Troponin I < 0.012 Ethyl Alcohol Level < 10.0 H White Blood Count 3.1 L Red Blood Count 4.18 L Hemoglobin 12.7 L Hematocrit 38.3 L Mean Corpuscular Volume 91.6 Mean Corpuscular Hemoglobin 30.4 Mean Corpuscular Hemoglobin Concent 33.2 Red Cell Distribution Width 15.9 H Platelet Count 214 Mean Platelet Volume 10.8 H Immature Granulocytes % 0.000 L Neutrophils % 45.5 Lymphocytes % 38.2 Monocytes % 10.8 Eosinophils % 4.5 Basophils % 1.0 Nucleated Red Blood Cells % 0.0 Immature Granulocytes # 0.000 Neutrophils # 1.4 L Lymphocytes # 1.2 Monocytes # 0.3 Eosinophils # 0.1 Basophils # 0.0 Nucleated Red Blood Cells # 0.0 Sodium Level 140 Potassium Level 3.5 Chloride Level 104 Carbon Dioxide Level 26 Anion Gap 10 Blood Urea Nitrogen 18 Creatinine 0.65 Est Glomerular Filtrat Rate mL/min > 60 Glucose Level 139 Calcium Level 8.8 Phosphorus Level 2.5 Magnesium Level 1.6 L Exam/Review of Systems Exam Vitals Vital Signs Date Temp Pulse Resp B/P (MAP) Pulse Ox O2 O2 Flow FiO2 Time Delivery Rate 12/31/18 81 08:22 12/31/18 98.4 20 155/99 96 07:30 (117) 12/30/18 Room Air 16:06 12/30/18 3.0 13:32 Intake and Output 12/30/18 12/30/18 12/31/18 1414:59 22:59 06:59 IntakeIntake Total 1280 ml 550 ml OutputOutput Total 200 ml 300 ml BalanceBalance 1080 ml 250 ml Results Results 24hrs Laboratory Tests Test 12/30/18 11:10 12/31/18 05:16 Creatine Kinase 207 H Creatine Kinase Index 1.4 Creatinine Kinase MB (Mass) 2.93 H Troponin I < 0.012 Ethyl Alcohol Level < 10.0 H White Blood Count 3.1 L Red Blood Count 4.18 L Hemoglobin 12.7 L Hematocrit 38.3 L Mean Corpuscular Volume 91.6 Mean Corpuscular Hemoglobin 30.4 Mean Corpuscular Hemoglobin Concent 33.2 Red Cell Distribution Width 15.9 H Platelet Count 214 Mean Platelet Volume 10.8 H Immature Granulocytes % 0.000 L Neutrophils % 45.5 Lymphocytes % 38.2 Monocytes % 10.8 Eosinophils % 4.5 Basophils % 1.0 Nucleated Red Blood Cells % 0.0 Immature Granulocytes # 0.000 Neutrophils # 1.4 L Lymphocytes # 1.2 Monocytes # 0.3 Eosinophils # 0.1 Basophils # 0.0 Nucleated Red Blood Cells # 0.0 Sodium Level 140 Potassium Level 3.5 Chloride Level 104 Carbon Dioxide Level 26 Anion Gap 10 Blood Urea Nitrogen 18 Creatinine 0.65 Est Glomerular Filtrat Rate mL/min > 60 Glucose Level 139 Calcium Level 8.8 Phosphorus Level 2.5 Magnesium Level 1.6 L Medications Medication Current Medications IV Flush (NS 3 ml) 3 ml PER PROTOCOL IV ; Start 12/30/18 at 06:00 Lorazepam (Ativan) 1 mg Q2H PRN IV .ANXIETY Last administered on 12/30/18 14:32; Admin Dose 1 MG; Start 12/30/18 at 06:00 Ondansetron HCl (Zofran Inj) 4 mg Q6H PRN IV NAUSEA/VOMITING; Start 12/30/18 at 06:00 Acetaminophen (Tylenol Tab) 650 mg Q6H PRN PO .PAIN 1-3 OR TEMP; Start 12/30/18 at 06:00 Heparin Sodium (Porcine) (Heparin (5000 Units/1ml)) 5,000 unit Q12 SC Last administered on 12/31/18 08:55; Admin Dose 5,000 UNIT; Start 12/30/18 at 09:00 Albuterol/ Ipratropium (Duoneb) 3 ml Q2H RESP THERAPY PRN HHN SHORTNESS OF BREATH; Start 12/30/18 at 06:00 Aripiprazole (Abilify) 15 mg DAILY PO Last administered on 12/31/18 08:39; Admin Dose 15 MG; Start 12/30/18 at 09:00 Atorvastatin Calcium (Lipitor) 80 mg QHS PO Last administered on 12/30/18 20:31; Admin Dose 80 MG; Start 12/30/18 at 21:00 Carvedilol (Coreg) 6.25 mg BID PO Last administered on 12/31/18 08:41; Admin Dose 6.25 MG; Start 12/30/18 at 09:00 Folic Acid (Folic Acid) 1 mg DAILY PO Last administered on 12/31/18 08:40; Admin Dose 1 MG; Start 12/30/18 at 09:00 Lisinopril (Zestril) 10 mg DAILY PO Last administered on 12/31/18 08:40; Admin Dose 10 MG; Start 12/30/18 at 09:00 Sertraline HCl (Zoloft) 150 mg DAILY PO Last administered on 12/31/18 08:39; Admin Dose 150 MG; Start 12/30/18 at 09:00 Thiamine HCl (Vitamin B1) 100 mg DAILY PO Last administered on 12/31/18 08:39; Admin Dose 100 MG; Start 12/30/18 at 09:00 Ferrous Gluconate (Fergon) 325 mg TID PO Last administered on 12/31/18 08:40; Admin Dose 325 MG; Start 12/30/18 at 09:00 Multivitamins Therapeutic (Theragran) 1 tab DAILY PO Last administered on 12/31/18 08:40; Admin Dose 1 TAB; Start 12/30/18 at 09:00 Lorazepam (Ativan) 2 mg Q2H PRN IV EtOH withdrawal Last administered on 12/31/18 03:14; Admin Dose 2 MG; Start 12/30/18 at 06:00 Vancomycin HCl (Vanco Iv Per Pharmacy) VANCOMYCIN PER PHARMACY PER PROTOCOL XX ; Start 12/30/18 at 06:00 Cefepime HCl 50 ml @ 100 mls/hr Q12 IVPB Last administered on 12/31/18 08:39; Admin Dose 100 MLS/HR; Start 12/30/18 at 07:00 Chlordiazepoxide (Librium) 50 mg TID PO Last administered on 12/31/18 08:40; Admin Dose 50 MG; Start 12/30/18 at 09:00 Vancomycin HCl 1.25 gm/Sodium Chloride 250 ml @ 83.333 mls/ hr Q12H IVPB Last administered on 12/31/18 01:59; Admin Dose 83.333 MLS/HR; Start 12/30/18 at 14:00 Magnesium Sulfate/ Dextrose 100 ml @ 100 mls/hr ONCE ONCE IVPB ; Start 12/31/18 at 11:00; Stop 12/31/18 at 11:59; Status HENNY LOCKWOOD Dec 31, 2018 10:38
[2018-12-31] MEDS ORDERED: MAGNESIUM SULFATE 1 GM/D5W 100 ML IVPB ONE (11:30)
[2018-12-31] MEDS: ATORVASTATIN 80 MG TAB PO SCH (20:29)
[2019-01-01] VITALS (13 sets, daily range): BP systolic 125–155; BP diastolic 81–99; PULSE 68–90; RESP 17–22
[2019-01-01] MEDS: VANCOMYCIN HCL 1.25 GM in SOD CHLORIDE 0.9% 250 ML IVPB SCH (02:25)
[2019-01-01] MEDS: LORAZEPAM 2 MG INJ IV PRN ×2 (04:12→16:31)
[2019-01-01] MEDS ORDERED: PROPOFOL 200 MG INJ ONE (07:00)
[2019-01-01] MEDS: CEFEPIME 1GM/50 ML (PMX) 50 ML IVPB SCH ×2 (08:06→21:05)
--- NOTE | 2019-01-01 08:31 | PREAC ---
Date/Time of Note Date/Time of Note DATE: 01/01/19 TIME: 08:29 Anesthesia Eval and Record Evaluation Time Pre-Procedure Interview DATE: 01/01/19 TIME: 08:29 Age 48 Sex male NPO: 8 hrs Preoperative diagnosis bacteremia, r/o endocarditis Planned procedure ROBERTO Past Medical History Past Medical History: Includes Cardio: HTN, Dyslipidemia, CAD (per H&P), CABG (per H&P), Other (s/p aortic valve bioprosthesis) Hepatic: Alcohol abuse Psych: Depression, Other (cocaine use weekly) Surgery & Anesthesia Issues No known issue Meds Anticoagulation: Yes Beta Afua within 24 hr: Yes Reported Medications Thiamine* (Thiamine*) 50 Mg Tablet, 100 MG PO DAILY, TAB 12/30/18 Folic Acid* (Folic Acid*) 1 Mg Tablet, 1 MG PO DAILY, TAB 12/30/18 Aripiprazole* (Abilify*) 15 Mg Tablet, 15 MG PO DAILY, #30 TAB 12/30/18 Aspirin* (Aspirin* EC) 81 Mg Tablet.dr, 81 MG PO DAILY, TAB 12/30/18 Atorvastatin* (Atorvastatin*) 80 Mg Tablet, 80 MG PO QHS, #30 TAB 12/30/18 Lisinopril* (Lisinopril*) 10 Mg Tablet, 10 MG PO DAILY, #30 TAB 12/30/18 Ferrous Sulfate (Ferrous Sulfate) 325 Mg Tablet.dr, 325 MG PO TID 12/30/18 Sertraline Hcl* (Sertraline Hcl*) 100 Mg Tablet, 150 MG PO DAILY, #30 TAB 12/30/18 Carvedilol* (Coreg*) 6.25 Mg Tablet, 6.25 MG PO BID, #60 TAB 12/30/18 Current Medications IV Flush (NS 3 ml) 3 ml PER PROTOCOL IV ; Start 12/30/18 at 06:00 Lorazepam (Ativan) 1 mg Q2H PRN IV .ANXIETY Last administered on 12/30/18at 14:32; Admin Dose 1 MG; Start 12/30/18 at 06:00 Ondansetron HCl (Zofran Inj) 4 mg Q6H PRN IV NAUSEA/VOMITING; Start 12/30/18 at 06:00 Acetaminophen (Tylenol Tab) 650 mg Q6H PRN PO .PAIN 1-3 OR TEMP; Start 12/30/18 at 06:00 Heparin Sodium (Porcine) (Heparin (5000 Units/1ml)) 5,000 unit Q12 SC Last administered on 12/31/18 08:55; Admin Dose 5,000 UNIT; Start 12/30/18 at 09:00 Albuterol/ Ipratropium (Duoneb) 3 ml Q2H RESP THERAPY PRN HHN SHORTNESS OF BREATH; Start 12/30/18 at 06:00 Aripiprazole (Abilify) 15 mg DAILY PO Last administered on 12/31/18 08:39; Admin Dose 15 MG; Start 12/30/18 at 09:00 Atorvastatin Calcium (Lipitor) 80 mg QHS PO Last administered on 12/31/18 20:29; Admin Dose 80 MG; Start 12/30/18 at 21:00 Carvedilol (Coreg) 6.25 mg BID PO Last administered on 12/31/18 20:30; Admin D ose 6.25 MG; Start 12/30/18 at 09:00 Folic Acid (Folic Acid) 1 mg DAILY PO Last administered on 12/31/18 08:40; Admin Dose 1 MG; Start 12/30/18 at 09:00 Lisinopril (Zestril) 10 mg DAILY PO Last administered on 12/31/18 08:40; Admin Dose 10 MG; Start 12/30/18 at 09:00 Sertraline HCl (Zoloft) 150 mg DAILY PO Last administered on 12/31/18 08:39; Admin Dose 150 MG; Start 12/30/18 at 09:00 Thiamine HCl (Vitamin B1) 100 mg DAILY PO Last administered on 12/31/18 08:39; Admin Dose 100 MG; Start 12/30/18 at 09:00 Ferrous Gluconate (Fergon) 325 mg TID PO Last administered on 12/31/18 20:30; Admin Dose 325 MG; Start 12/30/18 at 09:00 Multivitamins Therapeutic (Theragran) 1 tab DAILY PO Last administered on 12/31/18 08:40; Admin Dose 1 TAB; Start 12/30/18 at 09:00 Lorazepam (Ativan) 2 mg Q2H PRN IV EtOH withdrawal Last administered on 01/01/19 04:12; Admin Dose 2 MG; Start 12/30/18 at 06:00 Vancomycin HCl (Vanco Iv Per Pharmacy) VANCOMYCIN PER PHARMACY PER PROTOCOL XX ; Start 12/30/18 at 06:00 Cefepime HCl 50 ml @ 100 mls/hr Q12 IVPB Last administered on 01/01/19at 08:06; Admin Dose 100 MLS/HR; Start 12/30/18 at 07:00 Chlordiazepoxide (Librium) 50 mg TID PO Last administered on 12/31/18at 20:29; Admin Dose 50 MG; Start 12/30/18 at 09:00 Vancomycin HCl 250 ml @ 125 mls/hr Q8H IVPB ; Start 01/01/19 at 10:00 Meds reviewed: Yes Allergies Coded Allergies: No Known Allergy (Unverified , 12/30/18) Allergies Reviewed: Yes Labs/Studies Labs Reviewed: Reviewed by anesthesiologist Result Diagram: 01/01/19 0546 01/01/19 0546 Laboratory Tests 01/01/19 05:46 test: N/A Studies: ECG, 2D Echo (EF 55%) Pre-procedure Exam Last vitals Vital Signs Date Temp Pulse Resp B/P (MAP) Pulse Ox O2 O2 Flow FiO2 Time Delivery Rate 01/01/19 78 08:13 01/01/19 97.6 22 134/97 96 Room Air 08:05 (109) Nasal Cannula 01/01/19 3.0 31 04:34 Airway: Adequate mouth opening, Adequate thyromental dist Mallampati: Mallampati II Teeth: Normal Lung: Normal Heart: Normal ASA Physical Status ASA physical status: 3 Emergency: None Planned Anesthetic General/MAC: MAC, TIVA Planned Pain Management Parenteral pain med Pre-operative Attestations Prior to commencing anesthesia and surgery, the patient was re-evaluated, there was verification of: *The patient's identity *The results of appropriate recent lab work and preoperative vital signs *The above evaluation not changing prior to induction *Anesthetic plan, risk benefits, alternative and complications discussed with patient/family; questions answered; patient/family understands, accepts and wishes to proceed. WAYNE BRADLEY Jan 01, 2019 08:31
[2019-01-01] MEDS ORDERED: PROPOFOL 20 ML ONE (08:37)
[2019-01-01] MEDS ORDERED: LIDOCAINE 2% (SDV) 5 ML INJ ONE (08:37)
[2019-01-01] MEDS ORDERED: MIDAZOLAM 1 MG/ML 2 ML INJ IV PRN (09:00)
[2019-01-01] MEDS ORDERED: ONDANSETRON 4 MG INJ IV PRN (09:00)
[2019-01-01] MEDS ORDERED: FENTAnyl 50 MCG/ML VIAL IV PRN ×3 (09:00)
--- NOTE | 2019-01-01 10:29 | CONS ---
Assessment/Plan Assessment/Plan Hospital Course (Demo Recall) 48 yo with h/o bioprosthetic aortic valve, with known bacteremia from cultures on 12/10/2018, left hospital ama without completing antibiotic therapy, picked up intoxicated and brought to [facility], transferred here for insurance reasons. Cultures grew staphylococcus simulans and warneri and aerococcus viridans. ROBERTO shows no evidence of endocarditis Impression: Bacteremia, multi-organism, without evidence of endocarditis Nonischemic cardiomyopathy, LVEF about 40% on ROBERTO H/o bioprosthetic aortic valve and root replacement due to bicuspid valve with endocarditis, 2014 Bipolar disorder Alcohol abuse Cocaine and methamphetamine abuse Recommendations: Antibiotics as per ID, no evidence of endocarditis Needs to be on appropriate meds for cardiomyopathy Continue carvedilol and lisinopril, will increase lisinopril to 20 mg, and would uptitrate carvedilol in the future if bp/hr tolerates Maintenance of sobriety from all substances Consultation Date/Type/Reason Admit Date/Time Dec 30, 2018 at 04:32 Initial Consult Date 12/30/18 Type of Consult Cardiology Requesting Provider: HENNY SOTELO Date/Time of Note DATE: 01/01/19 TIME: 10:16 24 HR Interval Summary Free Text/Dictation Overnight no events. Prior to ROBERTO, saw and examined patient, he stated he felt well, no pain, no dyspnea. Chart from [facility] reviewed: Multiple admissions over the past several years. AVR with Bentall performed at [facility] for a bicuspid aortic valve with moderate-severe AI in the setting of endocarditis. He had a cath that reportedly demonstrated no significant coronary disease. Admitted to [facility] most recently 12/10-07/2019 with ETOH intoxication, sepsis, blood cultures grew staphylococcus simulans in the anaerobic bottle, staphylococcus warneri from the aerobic and anerobic bottles, and aerococcus viridans from the aerobic bottle. Sensitivities for aerococcus viridans listed in [facility] records. Patient did have a left arm cellulitis on presentation, ? this as the source of bacteremia. Patient had a ROBERTO at [facility] on 12/12/2018 that reportedly did not show evidence of endocarditis. Patient was going to be transferred to [facility] on 12/13/2018, but left AMA stating he would come back, ? admitted in the meantime to another hospital, ? [facility]? Constitutional: no complaints, improved Exam/Review of Systems Vital Signs Vitals Vital Signs Date Temp Pulse Resp B/P (MAP) Pulse Ox O2 O2 Flow FiO2 Time Delivery Rate 01/01/19 78 08:13 01/01/19 97.6 22 134/97 96 Room Air 08:05 (109) Nasal Cannula 01/01/19 3.0 31 04:34 Intake and Output 12/31/18 12/31/18 01/01/19 1414:59 22:59 06:59 IntakeIntake Total 1200 ml 700 ml OutputOutput Total 200 ml 500 ml BalanceBalance 1000 ml 200 ml Exam Constitutional: alert, oriented, well developed Psych: nl mood/affect Head: normocephalic, atraumatic Eyes: nl conjunctiva, EOMI, nl lids, nl sclera ENMT: nl external ears & nose Neck: supple; No jvd, No bruits Respiratory: clear to auscultation, normal air movement Cardiovascular: regular rate and rhythm, murmurs/extra sounds (systolic murmur heard at LUSB) Gastrointestinal: soft, non-tender Musculoskeletal: nl extremities to inspection Extremities: No edema Neurological: nl mental status, nl speech Skin: No rash or lesions Labs Result Diagram: 01/01/19 0546 01/01/19 0546 Results 24hrs Laboratory Tests Test 01/01/19 00:56 01/01/19 05:46 Vancomycin Level Trough 8.1 L White Blood Count 4.0 #L Red Blood Count 4.55 L Hemoglobin 13.6 L Hematocrit 41.2 L Mean Corpuscular Volume 90.5 Mean Corpuscular Hemoglobin 29.9 Mean Corpuscular Hemoglobin Concent 33.0 Red Cell Distribution Width 15.6 H Platelet Count 247 Mean Platelet Volume 11.1 H Immature Granulocytes % 0.200 Neutrophils % 52.3 Lymphocytes % 32.9 Monocytes % 8.2 Eosinophils % 5.4 Basophils % 1.0 Nucleated Red Blood Cells % 0.0 Immature Granulocytes # 0.010 Neutrophils # 2.1 Lymphocytes # 1.3 Monocytes # 0.3 Eosinophils # 0.2 Basophils # 0.0 Nucleated Red Blood Cells # 0.0 Sodium Level 141 Potassium Level 4.0 Chloride Level 107 Carbon Dioxide Level 23 Anion Gap 11 Blood Urea Nitrogen 14 Creatinine 0.63 Est Glomerular Filtrat Rate mL/min > 60 Glucose Level 107 Calcium Level 9.4 Phosphorus Level 3.4 Magnesium Level 1.8 Imaging Imaging ROBERTO today shows far better visualization of the endocardium than the transthoracic echo. LVEF is about 40% with global hypokinesis. Bioprosthetic aortic valve looks good, normal movement of the leaflets, no regurgitation, no vegetations. The other valves had no significant abnormalities noted. Medications Medications Current Medications IV Flush (NS 3 ml) 3 ml PER PROTOCOL IV ; Start 12/30/18 at 06:00 Lorazepam (Ativan) 1 mg Q2H PRN IV .ANXIETY Last administered on 12/30/18 14:32; Admin Dose 1 MG; Start 12/30/18 at 06:00 Ondansetron HCl (Zofran Inj) 4 mg Q6H PRN IV NAUSEA/VOMITING; Start 12/30/18 at 06:00 Acetaminophen (Tylenol Tab) 650 mg Q6H PRN PO .PAIN 1-3 OR TEMP; Start 12/30/18 at 06:00 Heparin Sodium (Porcine) (Heparin (5000 Units/1ml)) 5,000 unit Q12 SC Last administered on 12/31/18 08:55; Admin Dose 5,000 UNIT; Start 12/30/18 at 09:00 Albuterol/ Ipratropium (Duoneb) 3 ml Q2H RESP THERAPY PRN HHN SHORTNESS OF BREATH; Start 12/30/18 at 06:00 Aripiprazole (Abilify) 15 mg DAILY PO Last administered on 12/31/18 08:39; Admin Dose 15 MG; Start 12/30/18 at 09:00 Atorvastatin Calcium (Lipitor) 80 mg QHS PO Last administered on 12/31/18 20:29; Admin Dose 80 MG; Start 12/30/18 at 21:00 Carvedilol (Coreg) 6.25 mg BID PO Last administered on 12/31/18 20:30; Admin Dose 6.25 MG; Start 12/30/18 at 09:00 Folic Acid (Folic Acid) 1 mg DAILY PO Last administered on 12/31/18 08:40; Admin Dose 1 MG; Start 12/30/18 at 09:00 Lisinopril (Zestril) 10 mg DAILY PO Last administered on 12/31/18 08:40; Admin Dose 10 MG; Start 12/30/18 at 09:00 Sertraline HCl (Zoloft) 150 mg DAILY PO Last administered on 12/31/18 08:39; Admin Dose 150 MG; Start 12/30/18 at 09:00 Thiamine HCl (Vitamin B1) 100 mg DAILY PO Last administered on 12/31/18 08:39; Admin Dose 100 MG; Start 12/30/18 at 09:00 Ferrous Gluconate (Fergon) 325 mg TID PO Last administered on 12/31/18 20:30; Admin Dose 325 MG; Start 12/30/18 at 09:00 Multivitamins Therapeutic (Theragran) 1 tab DAILY PO Last administered on 12/31/18 08:40; Admin Dose 1 TAB; Start 12/30/18 at 09:00 Lorazepam (Ativan) 2 mg Q2H PRN IV EtOH withdrawal Last administered on 04:12; Admin Dose 2 MG; Start 12/30/18 at 06:00 Vancomycin HCl (Vanco Iv Per Pharmacy) VANCOMYCIN PER PHARMACY PER PROTOCOL XX ; Start 12/30/18 at 06:00 Cefepime HCl 50 ml @ 100 mls/hr Q12 IVPB Last administered on 01/01/19 08:06; Admin Dose 100 MLS/HR; Start 12/30/18 at 07:00 Chlordiazepoxide (Librium) 50 mg TID PO Last administered on 12/31/18 20:29; Admin Dose 50 MG; Start 12/30/18 at 09:00 Vancomycin HCl 250 ml @ 125 mls/hr Q8H IVPB ; Start 01/01/19 at 10:00 Fentanyl (Sublimaze) 25 mcg PACU ORDER PRN IV MILD PAIN 1-3; Start 01/01/19 at 09:00; Stop 01/01/19 at 13:00 Fentanyl (Sublimaze) 50 mcg PACU ORDER PRN IV MOD PAIN 4-6; Start 01/01/19 at 09:00; Stop 01/01/19 at 13:00 Fentanyl (Sublimaze) 75 mcg PACU ORDER PRN IV SEVERE PAIN 7-10; Start 01/01/19 at 09:00; Stop 01/01/19 at 13:00 Ondansetron HCl (Zofran Inj) 4 mg PACU ORDER PRN IV NAUSEA/VOMITING; Start 01/01/19 at 09:00; Stop 01/01/19 at 13:00 Midazolam HCl (Versed) 0.5 mg PACU ORDER PRN IV .ANXIETY; Start 01/01/19 at 09:00; Stop 01/01/19 at 13:00 TESSIE AGUSTIN Jan 01, 2019 10:27
--- NOTE | 2019-01-01 10:44 | PN ---
Date/Time of Note Date/Time of Note DATE: 01/01/19 TIME: 10:41 Assessment/Plan VTE Prophylaxis Risk score (from Ns)>0 risk: 1 SCD applied (from Ns): No SCD contraindicated: other Pharmacological prophylaxis: heparin Lines/Catheters [facility]from [facility] Saline Lock Urinary Cath still in place: No Assessment/Plan Hospital Course S: No acute events overnight. Presently off the floor getting ROBERTO procedure. O: VS - see below PE: -Unable to be performed today because the patient is off the floor getting ROBERTO procedure now Assessment/Plan: 48-year-old male with a history of hypertension, depression, cocaine use, CAD with CABG 2016, possible bowel surgery about a month ago, transferred from [facility] with bacteremia and intoxicated with alcohol. 1. Bacteremia -Per records, patient also has a prior history of AVR with Bentall performed at [facility] for a bicuspid aortic valve with moderate- severe AI in the setting of endocarditis.was recently at [facility], and blood cultures there grew staphylococcus simulans in the anaerobic bottle, staphylococcus warneri from the aerobic and anerobic bottles, and aerococcus viridans from the aerobic bottle. Apparently also had a ROBERTO performed there on December 13 of this year, no signs of endocarditis at that time; presently no fevers. -For now continue IV antibiotics -Per cardiology recommendations, presently getting another ROBERTO today, follow- up post procedure recommendation -Follow-up results of repeat blood culture results here 2. Alcohol intoxication -Monitor for signs of withdrawal, for now continue thiamine, folate, MVI, Librium. - As needed Ativan -Counseled on alcohol cessation 3. History of CAD with CABG in 2016 -Continue current medications, follow up cardiac recommendation 4. Substance abuse: Patient uses cocaine on a weekly or biweekly basis -Monitor withdrawal, counseled on cessation 5. Hypertension: Blood pressure presently stable -Monitor, adjust BP meds as needed Result Diagram: 01/01/1944 01[birth year]01/1944 Results 24hrs Laboratory Tests Test 01/01/19 00:56 01/01/19 05:46 Vancomycin Level Trough 8.1 L White Blood Count 4.0 #L Red Blood Count 4.55 L Hemoglobin 13.6 L Hematocrit 41.2 L Mean Corpuscular Volume 90.5 Mean Corpuscular Hemoglobin 29.9 Mean Corpuscular Hemoglobin Concent 33.0 Red Cell Distribution Width 15.6 H Platelet Count 247 Mean Platelet Volume 11.1 H Immature Granulocytes % 0.200 Neutrophils % 52.3 Lymphocytes % 32.9 Monocytes % 8.2 Eosinophils % 5.4 Basophils % 1.0 Nucleated Red Blood Cells % 0.0 Immature Granulocytes # 0.010 Neutrophils # 2.1 Lymphocytes # 1.3 Monocytes # 0.3 Eosinophils # 0.2 Basophils # 0.0 Nucleated Red Blood Cells # 0.0 Sodium Level 141 Potassium Level 4.0 Chloride Level 107 Carbon Dioxide Level 23 Anion Gap 11 Blood Urea Nitrogen 14 Creatinine 0.63 Est Glomerular Filtrat Rate mL/min > 60 Glucose Level 107 Calcium Level 9.4 Phosphorus Level 3.4 Magnesium Level 1.8 Exam/Review of Systems Exam Vitals Vital Signs Date Temp Pulse Resp B/P (MAP) Pulse Ox O2 O2 Flow FiO2 Time Delivery Rate 01/01/19 78 08:13 01/01/19 97.6 22 134/97 96 Room Air 08:05 (109) Nasal Cannula 01/01/19 3.0 31 04:34 Intake and Output 12/31/18 12/31/18 01/01/19 1515:00 23:00 07:00 IntakeIntake Total 1200 ml 700 ml OutputOutput Total 200 ml 500 ml BalanceBalance 1000 ml 200 ml Results Results 24hrs Laboratory Tests Test 01/01/19 00:56 01/01/19 05:46 Vancomycin Level Trough 8.1 L White Blood Count 4.0 #L Red Blood Count 4.55 L Hemoglobin 13.6 L Hematocrit 41.2 L Mean Corpuscular Volume 90.5 Mean Corpuscular Hemoglobin 29.9 Mean Corpuscular Hemoglobin Concent 33.0 Red Cell Distribution Width 15.6 H Platelet Count 247 Mean Platelet Volume 11.1 H Immature Granulocytes % 0.200 Neutrophils % 52.3 Lymphocytes % 32.9 Monocytes % 8.2 Eosinophils % 5.4 Basophils % 1.0 Nucleated Red Blood Cells % 0.0 Immature Granulocytes # 0.010 Neutrophils # 2.1 Lymphocytes # 1.3 Monocytes # 0.3 Eosinophils # 0.2 Basophils # 0.0 Nucleated Red Blood Cells # 0.0 Sodium Level 141 Potassium Level 4.0 Chloride Level 107 Carbon Dioxide Level 23 Anion Gap 11 Blood Urea Nitrogen 14 Creatinine 0.63 Est Glomerular Filtrat Rate mL/min > 60 Glucose Level 107 Calcium Level 9.4 Phosphorus Level 3.4 Magnesium Level 1.8 Medications Medication Current Medications IV Flush (NS 3 ml) 3 ml PER PROTOCOL IV ; Start 12/30/18 at 06:00 Lorazepam (Ativan) 1 mg Q2H PRN IV .ANXIETY Last administered on 12/30/18 14:32; Admin Dose 1 MG; Start 12/30/18 at 06:00 Ondansetron HCl (Zofran Inj) 4 mg Q6H PRN IV NAUSEA/VOMITING; Start 12/30/18 at 06:00 Acetaminophen (Tylenol Tab) 650 mg Q6H PRN PO .PAIN 1-3 OR TEMP; Start 12/30/18 at 06:00 Heparin Sodium (Porcine) (Heparin (5000 Units/1ml)) 5,000 unit Q12 SC Last administered on 12/31/18 08:55; Admin Dose 5,000 UNIT; Start 12/30/18 at 09:00 Albuterol/ Ipratropium (Duoneb) 3 ml Q2H RESP THERAPY PRN HHN SHORTNESS OF BREATH; Start 12/30/18 at 06:00 Aripiprazole (Abilify) 15 mg DAILY PO Last administered on 12/31/18 08:39; Admin Dose 15 MG; Start 12/30/18 at 09:00 Atorvastatin Calcium (Lipitor) 80 mg QHS PO Last administered on 12/31/18 20:29; Admin Dose 80 MG; Start 12/30/18 at 21:00 Carvedilol (Coreg) 6.25 mg BID PO Last administered on 12/31/18 20:30; Admin Dose 6.25 MG; Start 12/30/18 at 09:00 Folic Acid (Folic Acid) 1 mg DAILY PO Last administered on 12/31/18 08:40; Admin Dose 1 MG; Start 12/30/18 at 09:00 Sertraline HCl (Zoloft) 150 mg DAILY PO Last administered on 12/31/18 08:39; Admin Dose 150 MG; Start 12/30/18 at 09:00 Thiamine HCl (Vitamin B1) 100 mg DAILY PO Last administered on 12/31/18 08:39; Admin Dose 100 MG; Start 12/30/18 at 09:00 Ferrous Gluconate (Fergon) 325 mg TID PO Last administered on 2/27/19at 20:30; Admin Dose 325 MG; Start 12/30/18 at 09:00 Multivitamins Therapeutic (Theragran) 1 tab DAILY PO Last administered on 12/31/18at 08:40; Admin Dose 1 TAB; Start 12/30/18 at 09:00 Lorazepam (Ativan) 2 mg Q2H PRN IV EtOH withdrawal Last administered on 01/01/19at 04:12; Admin Dose 2 MG; Start 12/30/18 at 06:00 Vancomycin HCl (Vanco Iv Per Pharmacy) VANCOMYCIN PER PHARMACY PER PROTOCOL XX ; Start 12/30/18 at 06:00 Cefepime HCl 50 ml @ 100 mls/hr Q12 IVPB Last administered on 01/01/19at 08:06; Admin Dose 100 MLS/HR; Start 12/30/18 at 07:00 Chlordiazepoxide (Librium) 50 mg TID PO Last administered on 12/31/18at 20:29; Admin Dose 50 MG; Start 12/30/18 at 09:00 Vancomycin HCl 250 ml @ 125 mls/hr Q8H IVPB ; Start 01/01/19 at 10:00 Fentanyl (Sublimaze) 25 mcg PACU ORDER PRN IV MILD PAIN 1-3; Start 01/01/19 at 09:00; Stop 01/01/19 at 13:00 Fentanyl (Sublimaze) 50 mcg PACU ORDER PRN IV MOD PAIN 4-6; Start 01/01/19 at 09:00; Stop 01/01/19 at 13:00 Fentanyl (Sublimaze) 75 mcg PACU ORDER PRN IV SEVERE PAIN 7-10; Start 01/01/19 at 09:00; Stop 01/01/19 at 13:00 Ondansetron HCl (Zofran Inj) 4 mg PACU ORDER PRN IV NAUSEA/VOMITING; Start 01/01/19 at 09:00; Stop 01/01/19 at 13:00 Midazolam HCl (Versed) 0.5 mg PACU ORDER PRN IV .ANXIETY; Start 01/01/19 at 09:00; Stop 01/01/19 at 13:00 Lisinopril (Zestril) 20 mg DAILY PO ; Start 01/02/19 at 09:00 HENNY SOTELO Jan 01, 2019 10:44
--- NOTE | 2019-01-01 10:52 | PAC ---
Date/Time of Note Date/Time of Note DATE: 01/01/19 TIME: 10:51 Post-Anesthesia Notes Post-Anesthesia Note Last documented vital signs post procedure BP 133/66 HR 72 Temp 98 RR 22 Spo2 98% Vital Signs Date Temp Pulse Resp B/P (MAP) Pulse Ox O2 O2 Flow FiO2 Time Delivery Rate 01/01/19 78 08:13 01/01/19 97.6 22 134/97 96 Room Air 08:05 (109) Nasal Cannula 01/01/19 3.0 31 04:34 Activity: WNL Respiratory function: WNL Cardiovascular function: WNL Mental status: Baseline Pain reasonably controlled: Yes Hydration appropriate: Yes Nausea/Vomiting absent: Yes WAYNE BRADLEY Jan 01, 2019 10:52
[2019-01-01] MEDS: FERROUS GLUCONATE (EC) 325 MG TAB PO SCH ×3 (13:00→21:08)
[2019-01-01] MEDS: CHLORDIAZEPOXIDE 25 MG CAP PO SCH ×3 (13:00→21:08)
[2019-01-01] MEDS: ARIPIPRAZOLE 5 MG TAB PO SCH (13:43)
[2019-01-01] MEDS: SERTRALINE 50 MG TAB PO SCH (13:43)
[2019-01-01] MEDS: MULTIVITAMINS THERAPEUTIC TAB PO SCH (13:44)
[2019-01-01] MEDS: THIAMINE 100 MG TAB PO SCH (13:44)
[2019-01-01] MEDS: FOLIC ACID 1 MG TAB PO SCH (13:44)
[2019-01-01] MEDS: HEPARIN 5,000 UNIT/1 ML VIAL SC SCH ×2 (14:18→21:43)
[2019-01-01] MEDS: VANCOMYCIN 1 GM 250 ML IVPB SCH ×2 (16:07→18:54)
[2019-01-01] MEDS: ATORVASTATIN 80 MG TAB PO SCH (21:08)
[2019-01-02] VITALS (7 sets, daily range): BP systolic 118–133; BP diastolic 62–79; PULSE 68–93; RESP 21–22
[2019-01-02] MEDS: VANCOMYCIN 1 GM 250 ML IVPB SCH ×2 (02:31→10:33)
[2019-01-02] MEDS: LORAZEPAM 2 MG INJ IV PRN (04:54)
--- NOTE | 2019-01-02 08:27 | CONS ---
Assessment/Plan Assessment/Plan Hospital Course (Demo Recall) 48 yo with h/o bioprosthetic aortic valve, with known bacteremia from cultures on 12/10/2018, left hospital [facility] without completing antibiotic therapy, picked up intoxicated and brought to [facility], transferred here for insurance reasons. Cultures at [facility] grew staphylococcus simulans and warneri and aerococcus viridans, cultures here negative. ROBERTO shows no evidence of endocarditis Impression: Bacteremia, multi-organism, without evidence of endocarditis Nonischemic cardiomyopathy, LVEF about 40% on ROBERTO H/o bioprosthetic aortic valve and root replacement due to bicuspid valve with endocarditis, 2014 Bipolar disorder Alcohol abuse Cocaine and methamphetamine abuse Recommendations: Antibiotics as per ID, no evidence of endocarditis Continue carvedilol and lisinopril, will uptitrate carvedilol starting with tomorrow's doses Discussed sobriety, he feels that cocaine is something he can stay away from, but says with alcohol he usually "shares with some buddies". Discussed complete abstinence from ETOH and other substances. Consultation Date/Type/Reason Admit Date/Time Dec 30, 2018 at 04:32 Initial Consult Date 12/30/18 Type of Consult Cardiology Requesting Provider: HENNY SOTELO Date/Time of Note DATE: 01/02/19 TIME: 08:23 24 HR Interval Summary Free Text/Dictation Feels well, able to walk with PT, no pain no dyspnea. Exam/Review of Systems Vital Signs Vitals Vital Signs Date Temp Pulse Resp B/P (MAP) Pulse Ox O2 O2 Flow FiO2 Time Delivery Rate 01/02/19 93 08:06 01/02/19 97.5 22 122/78 96 Room Air 07:37 (93) 01/02/19 21 04:30 01/01/19 3.0 04:34 Intake and Output 01/01/19 01/01/19 01/02/19 1515:00 23:00 07:00 IntakeIntake Total 780 ml 1100 ml BalanceBalance 780 ml 1100 ml Exam Constitutional: alert, oriented, well developed Psych: nl mood/affect Head: normocephalic, atraumatic Eyes: nl conjunctiva, EOMI, nl lids, nl sclera ENMT: nl external ears & nose Neck: supple; No jvd, No bruits Respiratory: clear to auscultation, normal air movement Cardiovascular: regular rate and rhythm, nl pulses, murmurs/extra sounds (systolic murmur at lusb) Gastrointestinal: soft, nl liver, spleen, non-tender Musculoskeletal: nl extremities to inspection Extremities: No edema Neurological: nl mental status; No nl speech (understandable but somewhat slurred) Skin: No rash or lesions Labs Result Diagram: 01/02/19 0545 01/02/19 0545 Results 24hrs Laboratory Tests Test 01/02/19 05:45 White Blood Count 7.0 # Red Blood Count 4.41 L Hemoglobin 13.6 L Hematocrit 40.6 L Mean Corpuscular Volume 92.1 Mean Corpuscular Hemoglobin 30.8 Mean Corpuscular Hemoglobin Concent 33.5 Red Cell Distribution Width 15.6 H Platelet Count 215 Mean Platelet Volume 10.4 Immature Granulocytes % 0.400 Neutrophils % 67.4 Lymphocytes % 21.7 Monocytes % 6.5 Eosinophils % 3.3 Basophils % 0.7 Nucleated Red Blood Cells % 0.0 Immature Granulocytes # 0.030 Neutrophils # 4.7 Lymphocytes # 1.5 Monocytes # 0.5 Eosinophils # 0.2 Basophils # 0.1 Nucleated Red Blood Cells # 0.0 Sodium Level 139 Potassium Level 4.0 Chloride Level 104 Carbon Dioxide Level 24 Anion Gap 11 Blood Urea Nitrogen 18 Creatinine 0.72 Est Glomerular Filtrat Rate mL/min > 60 Glucose Level 111 Calcium Level 9.4 Medications Medications Current Medications IV Flush (NS 3 ml) 3 ml PER PROTOCOL IV ; Start 12/30/18 at 06:00 Lorazepam (Ativan) 1 mg Q2H PRN IV .ANXIETY Last administered on 01/01/19at 16:31; Admin Dose 1 MG; Start 12/30/18 at 06:00 Ondansetron HCl (Zofran Inj) 4 mg Q6H PRN IV NAUSEA/VOMITING; Start 12/30/18 at 06:00 Acetaminophen (Tylenol Tab) 650 mg Q6H PRN PO .PAIN 1-3 OR TEMP; Start 12/30/18 at 06:00 Heparin Sodium (Porcine) (Heparin (5000 Units/1ml)) 5,000 unit Q12 SC Last administered on 01/01/19at 21:43; Admin Dose 5,000 UNIT; Start 12/30/18 at 09:00 Albuterol/ Ipratropium (Duoneb) 3 ml Q2H RESP THERAPY PRN HHN SHORTNESS OF BREATH; Start 12/30/18 at 06:00 Aripiprazole (Abilify) 15 mg DAILY PO Last administered on 01/01/19 13:43; Admin Dose 15 MG; Start 12/30/18 at 09:00 Atorvastatin Calcium (Lipitor) 80 mg QHS PO Last administered on 01/01/19 21:08; Admin Dose 80 MG; Start 12/30/18 at 21:00 Carvedilol (Coreg) 6.25 mg BID PO Last administered on 01/01/19 21:11; Admin Dose 6.25 MG; Start 12/30/18 at 09:00 Folic Acid (Folic Acid) 1 mg DAILY PO Last administered on 01/01/19 13:44; Admin Dose 1 MG; Start 12/30/18 at 09:00 Sertraline HCl (Zoloft) 150 mg DAILY PO Last administered on 01/01/19 13:43; Admin Dose 150 MG; Start 12/30/18 at 09:00 Thiamine HCl (Vitamin B1) 100 mg DAILY PO Last administered on 01/01/19 13:44; Admin Dose 100 MG; Start 12/30/18 at 09:00 Ferrous Gluconate (Fergon) 325 mg TID PO Last administered on 01/01/19 21:08; Admin Dose 325 MG; Start 12/30/18 at 09:00 Multivitamins Therapeutic (Theragran) 1 tab DAILY PO Last administered on 01/01/19 13:44; Admin Dose 1 TAB; Start 12/30/18 at 09:00 Lorazepam (Ativan) 2 mg Q2H PRN IV EtOH withdrawal Last administered on 01/02/19 04:54; Admin Dose 2 MG; Start 12/30/18 at 06:00 Vancomycin HCl (Vanco Iv Per Pharmacy) VANCOMYCIN PER PHARMACY PER PROTOCOL XX ; Start 12/30/18 at 06:00 Cefepime HCl 50 ml @ 100 mls/hr Q12 IVPB Last administered on 01/01/19 21:05; Admin Dose 100 MLS/HR; Start 12/30/18 at 07:00 Chlordiazepoxide (Librium) 50 mg TID PO Last administered on 01/01/19 21:08; Admin Dose 50 MG; Start 12/30/18 at 09:00 Vancomycin HCl 250 ml @ 125 mls/hr Q8H IVPB Last administered on 01/02/19at 02:31; Admin Dose 125 MLS/HR; Start 01/01/19 at 10:00 Lisinopril (Zestril) 20 mg DAILY PO ; Start 01/02/19 at 09:00 TESSIE AGUSTIN Jan 02, 2019 08:27
[2019-01-02] MEDS ORDERED: LISINOPRIL 20 MG TAB PO SCH (09:00)
[2019-01-02] MEDS: CEFEPIME 1GM/50 ML (PMX) 50 ML IVPB SCH (09:06)
[2019-01-02] MEDS: ARIPIPRAZOLE 5 MG TAB PO SCH (09:07)
[2019-01-02] MEDS: MULTIVITAMINS THERAPEUTIC TAB PO SCH (09:07)
[2019-01-02] MEDS: CHLORDIAZEPOXIDE 25 MG CAP PO SCH (09:07)
[2019-01-02] MEDS: FOLIC ACID 1 MG TAB PO SCH (09:07)
[2019-01-02] MEDS: FERROUS GLUCONATE (EC) 325 MG TAB PO SCH (09:08)
[2019-01-02] MEDS: SERTRALINE 50 MG TAB PO SCH (09:08)
[2019-01-02] MEDS: THIAMINE 100 MG TAB PO SCH (09:09)
[2019-01-02] MEDS: HEPARIN 5,000 UNIT/1 ML VIAL SC SCH (09:51)
--- NOTE | 2019-01-02 10:51 | RADRPT ---
Transesophageal Echo Report Patient Name: SHARAN REYESPatient ID: [id number] : 1970 (48y 2m)Study Date: 01/01/2019 9:14:31 AM Gender: MAccession #: [id number] Tech: Dc Tai [facility] Location: [facility] Ref.Physician: JO AGUSTIN Height(Cm): BSA: Weight(Kg): Quality: AdequateAccount #: Procedures: Transesophageal Echo Report: Transesophageal echocardiogram was performed. PREP: Patient received pre-procedure education; informed consent and baseline vital signs were obtained. SEDATION: Systemic sedation was achieved with propofol administered by anesthesia. ESOPHAGEAL INTUBATION: After suitable sedation, the probe was passed. Continuous pulse oximetry, electrocardiographic, and blood pressure monitoring were maintained throughout the procedure. Standard views were obtained in the transgastric, mid-esophageal, and basal planes at approximately 0, 30, 90, and 120 degrees. In addition, a normal saline study was performed. The probe needed to be removed once due to respiratory decompensation; once adequate saturations attained, the probe was re-introduced, and images quickly completed. No immediate ROBERTO complications noted. Indications: Endocarditis. : Dr. Jo Agustin. . Findings: Left Ventricle: Normal left ventricular size. Moderate global left ventricular systolic dysfunction. Ejection fraction is measured at 40 %. Right Ventricle: Normal right ventricular size. Normal right ventricular systolic function. Left Atrium: The left atrium is normal in size. Right Atrium: The right atrium is normal in size. Atrial Septum: Normal atrial septum. No shunt by color Doppler. Mitral Valve: Normal appearance of the mitral valve. Trivial mitral regurgitation. Aortic Valve: No aortic regurgitation. Normal appearing and functioning aortic valve prosthesis. Tricuspid Valve: Normal appearance of the tricuspid valve. Pulmonic Valve: Pulmonic valve not well visualized. Aorta: Normal aortic root. Ascending aorta is normal. Aortic arch is normal. Descending aorta is normal. Pulmonary Veins: Pulmonary veins are normal in appearance and pulse Doppler interrogation shows normal systolic predominant flow. Atrial Appendage: Normal atrial appendage no thrombi or echogenic structure seen. Conclusions: Moderately reduced left ventricular systolic function with global hypokinesis, EF 40%. Bioprosthetic aortic valve appears normal and no evidence of vegetations. Electronically Signed By: Jo Agustin 2019-01-02 10:50:02 PST
--- NOTE | 2019-01-02 11:14 | PN ---
Date/Time of Note Date/Time of Note DATE: 01/02/19 TIME: 11:04 Assessment/Plan VTE Prophylaxis Risk score (from Ns)>0 risk: 2 SCD applied (from Ns): No SCD contraindicated: other Pharmacological prophylaxis: heparin Lines/Catheters IV Catheter Type (from [facility]): Saline Lock Urinary Cath still in place: No Assessment/Plan Hospital Course S: Patient had ROBERTO yesterday, no significant findings for endocarditis seen. Patient almost left [facility] yesterday, but stayed overnight. No fevers overnight, tolerating diet. O: VS - see below PE: General: lying in bed, no acute distress HEENT: NC/AT. pupils are equal. round. NECK: Supple CV: RRR. systolic murmur; no gallop or rubs. PULM: no wheezing or rhonchi. GI: SOFT, NT, ND, no rebound or guarding Extremity: trace B/L LE edema. no clubbing. neuro: No focal deficits Assessment/Plan: 48-year-old male with a history of hypertension, depression, cocaine use, CAD with CABG 2015, possible bowel surgery about a month ago, transferred from [facility] with bacteremia and intoxicated with alcohol. 1. Bacteremia - Per records, patient also has a prior history of AVR. pt was re cently at [facility], and blood cultures there grew staphylococcus simulans in the anaerobic bottle, staphylococcus warneri from the aerobic and anerobic bottles, and aerococcus viridans from the aerobic bottle (12/13/18). Apparently also had a ROBERTO performed there on December 13 of this year, no signs of endocarditis at that time; presently no fevers. ROBERTO here done yesterday with no significant findings for endocarditis. Blood cultures here have been negative to date. -For now continue current IV antibiotics cefepime and vancomycin -We will obtain ID consult to help sort out which antibiotics patient may need to go home with, and for how long -Follow-up final results of repeat blood culture results here 2. Alcohol intoxication -no present issues -Monitor for signs of withdrawal, for now continue thiamine, folate, MVI, Librium. - As needed Ativan -Counseled on alcohol cessation 3. Substance abuse: Patient uses cocaine on a weekly or biweekly basis -Monitor withdrawal, counseled on cessation 4. Hypertension: Blood pressure presently stable -Monitor, adjust BP meds as needed 5. Nonischemic cardiomyopathy: LVEF about 40% on ROBERTO -Continue Coreg and lisinopril as ordered by cardiology team, monitor vital signs and cardiology recommendations Result Diagram: 01/02/19 0545 01/02/19 0944 Results 24hrs Laboratory Tests Test 01/02/19 05:45 01/02/19 09:44 White Blood Count 7.0 # Red Blood Count 4.41 L Hemoglobin 13.6 L Hematocrit 40.6 L Mean Corpuscular Volume 92.1 Mean Corpuscular Hemoglobin 30.8 Mean Corpuscular Hemoglobin Concent 33.5 Red Cell Distribution Width 15.6 H Platelet Count 215 Mean Platelet Volume 10.4 Immature Granulocytes % 0.400 Neutrophils % 67.4 Lymphocytes % 21.7 Monocytes % 6.5 Eosinophils % 3.3 Basophils % 0.7 Nucleated Red Blood Cells % 0.0 Immature Granulocytes # 0.030 Neutrophils # 4.7 Lymphocytes # 1.5 Monocytes # 0.5 Eosinophils # 0.2 Basophils # 0.1 Nucleated Red Blood Cells # 0.0 Sodium Level 139 Potassium Level 4.0 Chloride Level 104 Carbon Dioxide Level 24 Anion Gap 11 Blood Urea Nitrogen 18 21 H Creatinine 0.72 0.75 Est Glomerular Filtrat Rate mL/min > 60 Glucose Level 111 Calcium Level 9.4 Vancomycin Level Trough 13.0 Exam/Review of Systems Exam Vitals Vital Signs Date Temp Pulse Resp B/P (MAP) Pulse Ox O2 O2 Flow FiO2 Time Delivery Rate 01/02/19 93 08:06 01/02/19 97.5 22 122/78 96 Room Air 07:37 (93) 01/02/19 21 04:30 01/01/19 3.0 04:34 Intake and Output 01/01/19 01/01/19 01/02/19 1515:00 23:00 07:00 IntakeIntake Total 780 ml 1100 ml BalanceBalance 780 ml 1100 ml Results Results 24hrs Laboratory Tests Test 01/02/19 05:45 01/02/19 09:44 White Blood Count 7.0 # Red Blood Count 4.41 L Hemoglobin 13.6 L Hematocrit 40.6 L Mean Corpuscular Volume 92.1 Mean Corpuscular Hemoglobin 30.8 Mean Corpuscular Hemoglobin Concent 33.5 Red Cell Distribution Width 15.6 H Platelet Count 215 Mean Platelet Volume 10.4 Immature Granulocytes % 0.400 Neutrophils % 67.4 Lymphocytes % 21.7 Monocytes % 6.5 Eosinophils % 3.3 Basophils % 0.7 Nucleated Red Blood Cells % 0.0 Immature Granulocytes # 0.030 Neutrophils # 4.7 Lymphocytes # 1.5 Monocytes # 0.5 Eosinophils # 0.2 Basophils # 0.1 Nucleated Red Blood Cells # 0.0 Sodium Level 139 Potassium Level 4.0 Chloride Level 104 Carbon Dioxide Level 24 Anion Gap 11 Blood Urea Nitrogen 18 21 H Creatinine 0.72 0.75 Est Glomerular Filtrat Rate mL/min > 60 Glucose Level 111 Calcium Level 9.4 Vancomycin Level Trough 13.0 Medications Medication Current Medications IV Flush (NS 3 ml) 3 ml PER PROTOCOL IV ; Start 12/30/18 at 06:00 Lorazepam (Ativan) 1 mg Q2H PRN IV .ANXIETY Last administered on 01/01/19at 16:31; Admin Dose 1 MG; Start 12/30/18 at 06:00 Ondansetron HCl (Zofran Inj) 4 mg Q6H PRN IV NAUSEA/VOMITING; Start 12/30/18 at 06:00 Acetaminophen (Tylenol Tab) 650 mg Q6H PRN PO .PAIN 1-3 OR TEMP; Start 12/30/18 at 06:00 Heparin Sodium (Porcine) (Heparin (5000 Units/1ml)) 5,000 unit Q12 SC Last administered on 01/02/19at 09:51; Admin Dose 5,000 UNIT; Start 12/30/18 at 09:00 Albuterol/ Ipratropium (Duoneb) 3 ml Q2H RESP THERAPY PRN HHN SHORTNESS OF BREATH; Start 12/30/18 at 06:00 Aripiprazole (Abilify) 15 mg DAILY PO Last administered on 01/02/19at 09:07; Admin Dose 15 MG; Start 12/30/18 at 09:00 Atorvastatin Calcium (Lipitor) 80 mg QHS PO Last administered on 01/01/19at 21:08; Admin Dose 80 MG; Start 12/30/18 at 21:00 Carvedilol (Coreg) 6.25 mg BID PO Last administered on 01/02/19 09:08; Admin Dose 6.25 MG; Start 12/30/18 at 09:00; Stop 01/02/19 at 23:00 Folic Acid (Folic Acid) 1 mg DAILY PO Last administered on 01/02/19 09:07; A dmin Dose 1 MG; Start 12/30/18 at 09:00 Sertraline HCl (Zoloft) 150 mg DAILY PO Last administered on 01/02/19 09:08; Admin Dose 150 MG; Start 12/30/18 at 09:00 Thiamine HCl (Vitamin B1) 100 mg DAILY PO Last administered on 01/02/19 09:09; Admin Dose 100 MG; Start 12/30/18 at 09:00 Ferrous Gluconate (Fergon) 325 mg TID PO Last administered on 01/02/19 09:08; Admin Dose 325 MG; Start 12/30/18 at 09:00 Multivitamins Therapeutic (Theragran) 1 tab DAILY PO Last administered on 01/02/19 09:07; Admin Dose 1 TAB; Start 12/30/18 at 09:00 Lorazepam (Ativan) 2 mg Q2H PRN IV EtOH withdrawal Last administered on 01/02/19 04:54; Admin Dose 2 MG; Start 12/30/18 at 06:00 Vancomycin HCl (Vanco Iv Per Pharmacy) VANCOMYCIN PER PHARMACY PER PROTOCOL XX ; Start 12/30/18 at 06:00 Cefepime HCl 50 ml @ 100 mls/hr Q12 IVPB Last administered on 01/02/19 09:06; Admin Dose 100 MLS/HR; Start 12/30/18 at 07:00 Chlordiazepoxide (Librium) 50 mg TID PO Last administered on 01/02/19 09:07; Admin Dose 50 MG; Start 12/30/18 at 09:00 Vancomycin HCl 250 ml @ 125 mls/hr Q8H IVPB Last administered on 01/02/19 10: 33; Admin Dose 125 MLS/HR; Start 01/01/19 at 10:00 Lisinopril (Zestril) 20 mg DAILY PO Last administered on 01/02/19 09:09; Admin Dose 20 MG; Start 01/02/19 at 09:00 Carvedilol (Coreg) 12.5 mg BID PO ; Start 01/03/19 at 09:00 HENNY SOTELO Jan 02, 2019 11:13
--- NOTE | 2019-01-02 14:00 | DS ---
Date/Time of Note Date/Time of Note DATE: 01/02/19 TIME: 14:00 Discharge Summary Admission/Discharge Info Admit Date/Time Dec 30, 2018 at 04:32 Discharge Date/Time Jan 02, 2019 at 13:30 Discharge Diagnosis Pt left AMA Patient Condition: Serious Hospital Course S: Patient had ROBERTO yesterday, no significant findings for endocarditis seen. Patient almost left AGAINST MEDICAL ADVICE yesterday, but stayed overnight. No fevers overnight, tolerating diet. O: VS - see below PE: General: lying in bed, no acute distress HEENT: NC/AT. pupils are equal. round. NECK: Supple CV: RRR. systolic murmur; no gallop or rubs. PULM: no wheezing or rhonchi. GI: SOFT, NT, ND, no rebound or guarding Extremity: trace B/L LE edema. no clubbing. neuro: No focal deficits Assessment/Plan: 48-year-old male with a history of hypertension, depression, cocaine use, CAD with CABG 2015, possible bowel surgery about a month ago, transferred from [facility] with bacteremia and intoxicated with alcohol. 1. Bacteremia - Per records, patient also has a prior history of AVR. pt was recently at [facility], and blood cultures there grew staphylococcus simulans in the anaerobic bottle, staphylococcus warneri from the aerobic and anerobic bottles, and aerococcus viridans from the aerobic bottle (12/13/18). Apparently also had a ROBERTO performed there on December 13 of this year, no signs of endocarditis at that time; presently no fevers. ROBERTO here done yesterday with no significant findings for endocarditis. Blood cultures here have been negative to date. -For now continue current IV antibiotics cefepime and vancomycin -We will obtain ID consult to help sort out which antibiotics patient may need to go home with, and for how long -Follow-up final results of repeat blood culture results here 2. Alcohol intoxication -no present issues -Monitor for signs of withdrawal, for now continue thiamine, folate, MVI, Librium. - As needed Ativan -Counseled on alcohol cessation 3. Substance abuse: Patient uses cocaine on a weekly or biweekly basis -Monitor withdrawal, counseled on cessation 4. Hypertension: Blood pressure presently stable -Monitor, adjust BP meds as needed 5. Nonischemic cardiomyopathy: LVEF about 40% on ROBERTO -Continue Coreg and lisinopril as ordered by cardiology team, monitor vital signs and cardiology recommendations Home Meds Reported Medications Thiamine* (Thiamine*) 50 Mg Tablet, 100 MG PO DAILY, TAB 12/30/18 Folic Acid* (Folic Acid*) 1 Mg Tablet, 1 MG PO DAILY, TAB 12/30/18 Aripiprazole* (Abilify*) 15 Mg Tablet, 15 MG PO DAILY, #30 TAB 12/30/18 Aspirin* (Aspirin* EC) 81 Mg Tablet.dr, 81 MG PO DAILY, TAB 12/30/18 Atorvastatin* (Atorvastatin*) 80 Mg Tablet, 80 MG PO QHS, #30 TAB 12/30/18 Lisinopril* (Lisinopril*) 10 Mg Tablet, 10 MG PO DAILY, #30 TAB 12/30/18 Ferrous Sulfate (Ferrous Sulfate) 325 Mg Tablet.dr, 325 MG PO TID 12/30/18 Sertraline Hcl* (Sertraline Hcl*) 100 Mg Tablet, 150 MG PO DAILY, #30 TAB 12/30/18 Carvedilol* (Coreg*) 6.25 Mg Tablet, 6.25 MG PO BID, #60 TAB 12/30/18 Primary Care Provider Not On Staff Doctor Time spent on discharge: < 30 minutes Pending Labs Laboratory Tests Test 01/02/19 05:45 01/02/19 09:44 White Blood Count 7.0 10^3/ul (4.8-10.8) Red Blood Count 4.41 10^6/ul (4.70-6.10) Hemoglobin 13.6 g/dl (14.0-18.0) Hematocrit 40.6 % (42.0-52.0) Mean Corpuscular Volume 92.1 fl (82.0-101.0) Mean Corpuscular Hemoglobin 30.8 pg (29.0-33.0) Mean Corpuscular 33.5 g/dl (32.0-37.0) Hemoglobin Concent Red Cell Distribution Width 15.6 % (11.5-14.5) Platelet Count 215 10^3/UL (140-415) Mean Platelet Volume 10.4 fl (7.4-10.4) Immature Granulocytes % 0.400 % (0.001-0.429) Neutrophils % 67.4 % (39.0-77.0) Lymphocytes % 21.7 % (15.0-51.0) Monocytes % 6.5 % (0.0-11.0) Eosinophils % 3.3 % (0.0-7.0) Basophils % 0.7 % (0.0-2.0) Nucleated Red Blood Cells % 0.0 /100WBC (0.0-0.0) Immature Granulocytes # 0.030 10^3/ul (0.0-0.031) Neutrophils # 4.7 10^3/ul (1.6-7.5) Lymphocytes # 1.5 10^3/ul (0.8-2.9) Monocytes # 0.5 10^3/ul (0.3-0.9) Eosinophils # 0.2 10^3/ul (0.0-0.5) Basophils # 0.1 10^3/ul (0.0-0.1) Nucleated Red Blood Cells # 0.0 10^3/ul (0.0-0.0) Sodium Level 139 mmol/L (135-144) Potassium Level 4.0 mmol/L (3.5-5.1) Chloride Level 104 mmol/L (97-110) Carbon Dioxide Level 24 mmol/L (21-31) Anion Gap 11 (5-13) Blood Urea Nitrogen 18 mg/dl (7-20) 21 mg/dl (7-20) Creatinine 0.72 mg/dl (0.61-1.24) 0.75 mg/dl (0.61-1.24) Est Glomerular Filtrat > 60 mL/min (>60) Rate mL/min Glucose Level 111 mg/dl (70-220) Calcium Level 9.4 mg/dl (8.4-10.2) Vancomycin Level Trough 13.0 ug/ml (10.0-20.0) HENNY SOTELO Jan 02, 2019 14:00
--- NOTE | 2019-01-02 15:03 | CONS ---
DATE OF ADMISSION: 12/30/2018 DATE OF CONSULTATION: 01/02/2019 TYPE OF CONSULTATION: Infectious disease. REASON FOR CONSULTATION: Antibiotic management. HISTORY OF PRESENT ILLNESS: Edwar Escobar is a 48-year-old male with a number of problem s includin. Hypertension. 2. Depression. 3. Cocaine use. 4. Coronary artery disease with a coronary artery bypass in 2016. 5. Possible bowel surgery about a month ago. The patient was transferred from [facility] after he was found to be bacteremic and intoxicated. He has bee n drinking on a daily basis and on admission was intoxicated. He also has a history of I believe aor tic valve replacement. PHYSICAL EXAMINATION: GENERAL: On admission, he is lying in bed in no acute distress. VITAL SIGNS: Stable. He is afebrile. SKIN: Without generalized rash. HEENT: Within normal limits. NECK: Supple. LYMPH NODES: None palpable. CHEST: Decreased breath sounds at the bases. HEART: Without murmur or gallop. ABDOMEN: Soft, nontender without organosplenomegaly or masses. EXTREMITIES: Without cyanosis or clubbing. He has bilateral lower extremity edema. RECTAL AND GENITAL: Deferred. NEUROLOGIC: No focal neurological abnormalities. ANCILLARY LABORATORY DATA: On 12/30/2018, his white count was 3.7. Blood cultures at [facility] grew out m ultiple organisms including Staphylococcus simulans, Staph and Aerococcus viridans. His blood cultures there were positive on 12/13/2018 and it is unclear how much antibiotics he received before leaving against medical advice. Here, his white count is normal. No fevers since he has been on van comycin and Zosyn on admission. DIAGNOSTIC DATA: A ROBERTO that was done yesterday showed no signs of endocarditis. He has an ejection fraction of 40%. Bioprosthetic aortic valve appears normal without evidence of vegetations according to Dr. Jo Martinez. IMPRESSION AND PLAN: I would discontinue the vancomycin and cefepime. It is unclear how long he has been treated for with these organisms. They are all sensitive to vancomycin I am sure and may be se nsitive to Ancef as well and even to Bactrim, but I doubt that they would be sensitive to Levaquin. It would be helpful to get the sensitivities from [facility] before making a decision. Blood cultures today are negative. I would suggest getting further records from [facility] and then possibly stopping all of hi s antibiotics. I will dictate my findings to the hospitalist. Dictated By: AYDIN BARTH MD, JD/LAURA Conf#: [id number] DID#: [id number] CC: GISELLE RIVERA MD; JO MARTINEZ MD; HENNY SOTELO;*End*
== END 2019-01-02 13:30 | disposition left against medical advice (07) | DRG 872 ==
LOC: 6WM 12-30 04:32
PROVIDERS: ADMIT Internal Medicine; ATTEND Hospitalist
PROC: B24BZZ4 Ultrasonography of Heart with Aorta, Transesophageal (ICD-10-PCS; principal; 2019-01-01 09:30)
DX: R78.81 Bacteremia (principal); F10.239 Alcohol dependence with withdrawal, unspecified; I42.9 Cardiomyopathy, unspecified; F10.229 Alcohol dependence with intoxication, unspecified; Z59.0 Homelessness; F14.10 Cocaine abuse, uncomplicated; I10 Essential (primary) hypertension; Z95.2 Presence of prosthetic heart valve; Z95.1 Presence of aortocoronary bypass graft; Y90.0 Blood alcohol level of less than 20 mg/100 ml; B95.7 Other staphylococcus as the cause of diseases classified elsewhere; B96.89 Other specified bacterial agents as the cause of diseases classified elsewhere; F15.10 Other stimulant abuse, uncomplicated; F14.90 Cocaine use, unspecified, uncomplicated
CPT/HCPCS: 80048; 80053; 80061; 80202; 80307; 82550; 82553; 82565; 83036; 83735; 84100; 84443; 84484; 84520; 85025; 87040; 93306; 93312; 93320; 93325; 97110; 97116; 97162; J0692; J1644; J2060; J3370; J3475; J7050